=== PATIENT | male | born 1930 | race American Indian/Alaskan Native ===

== ENCOUNTER 2021-11-07 10:32 | Inpatient (IN) | payer OTHER ==
[~2021-11-07] VITALS: Ht 177.8 cm; Wt 93.5 kg
[2021-11-07 12:32] LABS: Hematocrit 41.1 % (41.0-53.0); Hemoglobin 13.7 g/dL (13.5-17.5); Mean Corpuscular Hemoglobin 30.1 pg (28.0-32.0); Mean Corpuscular Hgb Conc. 33.4 g/dL (32.0-36.0); Mean Corpuscular Volume 90.1 fL (80.0-100.0); Red Blood Cells 4.56 10^6/uL (4.5-5.90); Red Cell Distribution Width 14.3 % (11.8-14.3); White Blood Cell 23.6 10^3/uL (4.4-10.8)
[2021-11-07 12:38] LABS: Albumin 2.7 g/dL (3.4-5.0); Calcium 9.4 mg/dL (8.5-10.1); Potassium 4.4 mmol/L (3.5-5.1)
[2021-11-07 12:42] LABS: BUN/Creatinine Ratio 22.7; Basophils % (manual) 0 (0.0-2.0); Blast Cells 0; Eosinophils % (manual) 0 (0-7); Metamyelocytes % 0; Myelocytes % 0; Promyelocytes % 0; Reactive Lymphocytes 0; Total Protein 7.6 g/dL (6.4-8.2)
[2021-11-07 12:49] LABS: INR 1.1 (0.9-1.15); Partial Thromboplastin Time 28.8 sec (23.6-33.0)
[2021-11-07] MEDS ORDERED: HEPARIN DRIP/D5W 100UNITS/ML 250 ML IV SCH (13:15)
[2021-11-07 13:23] LABS: Band Neutrophils % (manual) 6; Lymphocytes % (manual) 5 (10.0-50.0); Monocytes % (manual) 7 (0-12)
[2021-11-07] MEDS ORDERED: ALTEPLASE IV ONE ×3 (13:30→14:00)
[2021-11-07] MEDS ORDERED: STERILE WATER IV ONE ×3 (13:30→14:00)
[2021-11-07 13:36] LABS: Urine Bacteria NONE SEEN /hpf (None Seen); Urine Blood Negative /uL (Negative); Urine WBC 2 /hpf (0 - 3)
[2021-11-07] MEDS ORDERED: HEPARIN SODIUM (PORCINE) 5000 UNITS/ML 1ML VIAL IV ONE (14:15)
[2021-11-07] MEDS ORDERED: NITROGLYCERIN 0.4 MG SL TAB SL PRN (15:00)
[2021-11-07] MEDS ORDERED: MORPHINE SULFATE INJECTION 2 MG/ML SYRG IV PRN (15:00)
[2021-11-07] MEDS: HEPARIN DRIP/D5W 100UNITS/ML 250 ML IV SCH (15:22)
[2021-11-07] MEDS: ALTEPLASE IV SCH (15:51)
[2021-11-07] MEDS: STERILE WATER IV SCH (15:51)
[2021-11-07] MEDS ORDERED: ONDANSETRON HCL 4 MG/2 ML VIAL IV PRN (16:45)
[2021-11-07] MEDS ORDERED: FAMOTIDINE (10MG/ML) 2ML VL IV ONE (16:45)
[2021-11-07] MEDS ORDERED: IPRATROPIUM BROM 0.5 MG/2.5ML INH SOL NEB ONE (16:45)
[2021-11-07] MEDS ORDERED: DOCUSATE SOD 100 MG CAP PO PRN (16:45)
[2021-11-07] MEDS ORDERED: DEXTROSE (50%) 50ML SYRG IV PRN (17:00)
[2021-11-07] MEDS ORDERED: cefTRIAXone 1GM/50ML D5W 50 ML IV ONE (17:00)
[2021-11-07] MEDS ORDERED: BENAZEPRIL HCL 10 MG TAB PO ONE (17:00)
[2021-11-07] MEDS ORDERED: BUDESONIDE (INHALATION) 0.5 MG/2 ML NEB NEB ONE (17:00)
[2021-11-07 17:57] LABS: INR 1.16 (0.9-1.15)
[2021-11-07] MEDS ORDERED: CLINDAMYCIN 600MG IV 50 ML IV ONE (18:00)
[2021-11-07] MEDS: ACCU-CHEK COMFORT CURVE STRIP VI SCH ×2 (18:15→22:08)
[2021-11-07] MEDS: InsuLIN REG 1unit/0.01ml Soln (100units/ml) SC SCH ×2 (18:59→22:13)
[2021-11-07] MEDS ORDERED: ATORVASTATIN 20 MG TAB PO SCH (22:00)
[2021-11-07] MEDS ORDERED: IPRATROPIUM BROM 0.5 MG/2.5ML INH SOL NEB SCH (22:00)
[2021-11-07 22:27] LABS: INR 1.09 (0.9-1.15); Partial Thromboplastin Time 30.9 sec (23.6-33.0)
[2021-11-08 02:32] LABS: INR 1.14 (0.9-1.15); Partial Thromboplastin Time 32.4 sec (23.6-33.0)
[2021-11-08] MEDS: HEPARIN DRIP/D5W 100UNITS/ML 250 ML IV SCH ×2 (04:30→19:59)
[2021-11-08] MEDS ORDERED: HEPARIN SODIUM (PORCINE) 5000 UNITS/ML 1ML VIAL IV ONE (05:00)
[2021-11-08] MEDS: CLINDAMYCIN 600MG IV 50 ML IV SCH ×3 (06:36→22:45)
[2021-11-08] MEDS: ALTEPLASE IV SCH (07:11)
[2021-11-08] MEDS: STERILE WATER IV SCH (07:11)
[2021-11-08] MEDS: BUDESONIDE (INHALATION) 0.5 MG/2 ML NEB NEB SCH ×2 (07:31→18:45)
[2021-11-08] MEDS: IPRATROPIUM BROM 0.5 MG/2.5ML INH SOL NEB PRN ×2 (07:32→18:45)
[2021-11-08] MEDS: ACCU-CHEK COMFORT CURVE STRIP VI SCH ×4 (07:54→23:35)
[2021-11-08] MEDS: InsuLIN REG 1unit/0.01ml Soln (100units/ml) SC SCH ×4 (07:54→23:35)
[2021-11-08 08:30] LABS: Basophils # (auto) 0 10 ^3/uL (0-0.2); Basophils % (auto) 0.2 % (0.0-2.0); Eosinophils # (auto) 0.2 10 ^3/uL (0-0.8); Hematocrit 39.2 % (41.0-53.0); Hemoglobin 12.8 g/dL (13.5-17.5); Lymphocytes # (auto) 0.8 10 ^3/uL (0.4-5.4); Lymphocytes % (auto) 4.1 % (10.0-50.0); Mean Corpuscular Hemoglobin 29.5 pg (28.0-32.0); Mean Corpuscular Hgb Conc. 32.7 g/dL (32.0-36.0); Mean Corpuscular Volume 90.3 fL (80.0-100.0); Monocytes % (auto) 9.8 % (0.0-12.0); Neutrophils # (auto) 17.1 10 ^3/uL (1.6-8.6); Neutrophils % (auto) 84.9 % (37.0-80.0); Nucleated Red Blood Cells % 0.1 %; Red Blood Cells 4.34 10^6/uL (4.5-5.90); Red Cell Distribution Width 14.5 % (11.8-14.3); White Blood Cell 20.2 10^3/uL (4.4-10.8)
[2021-11-08 08:51] LABS: INR 1.12 (0.9-1.15); Partial Thromboplastin Time 42.8 sec (23.6-33.0)
[2021-11-08 08:57] LABS: Potassium 3.8 mmol/L (3.5-5.1)
[2021-11-08 09:14] LABS: Albumin 2.4 g/dL (3.4-5.0); BUN/Creatinine Ratio 26.9; Bilirubin, Total 0.7 mg/dL (0.2-1.0); Calcium 8.7 mg/dL (8.5-10.1); Phosphorus 3.6 mg/dL (2.5-4.90); Total Protein 6.6 g/dL (6.4-8.2); Uric Acid 6.2 mg/dL (3.5-7.2)
[2021-11-08] MEDS ORDERED: FAMOTIDINE (10MG/ML) 2ML VL IV SCH (10:00)
[2021-11-08] MEDS: BENAZEPRIL HCL 10 MG TAB PO SCH (10:36)
[2021-11-08] MEDS: LORazepam 0.5 MG TAB PO PRN (10:36)
[2021-11-08] MEDS: hydrALAZINE HCL 20 MG/ML VL IV PRN (13:58)
[2021-11-08 14:06] LABS: Hepatitis C Antibody Negative (Negative)
[2021-11-08 18:36] LABS: INR 1.18 (0.9-1.15)
[2021-11-08] MEDS ORDERED: cefTRIAXone 1GM/50ML D5W 50 ML IV SCH (21:00)
[2021-11-09 02:49] LABS: INR 1.19 (0.9-1.15); Partial Thromboplastin Time 43.6 sec (23.6-33.0)
[2021-11-09] MEDS ORDERED: HALOPERIDOL LACTATE 5 MG/ML INJ VIAL IM ONE (05:30)
[2021-11-09] MEDS: CLINDAMYCIN 600MG IV 50 ML IV SCH (06:46)
[2021-11-09] MEDS: SODIUM CHLORIDE 0.9% 1,000 ML IV SCH ×2 (07:29→14:04)
[2021-11-09 08:05] LABS: Hematocrit 40.8 % (41.0-53.0); Hemoglobin 13.5 g/dL (13.5-17.5); Mean Corpuscular Hemoglobin 29.8 pg (28.0-32.0); Mean Corpuscular Hgb Conc. 33.2 g/dL (32.0-36.0); Mean Corpuscular Volume 89.8 fL (80.0-100.0); Red Blood Cells 4.54 10^6/uL (4.5-5.90); Red Cell Distribution Width 14.1 % (11.8-14.3)
[2021-11-09 08:08] LABS: White Blood Cell 33.1 10^3/uL (4.4-10.8)
[2021-11-09 08:14] LABS: Albumin 2.5 g/dL (3.4-5.0); Calcium 8.9 mg/dL (8.5-10.1); Potassium 3.8 mmol/L (3.5-5.1)
[2021-11-09] MEDS: ACCU-CHEK COMFORT CURVE STRIP VI SCH ×4 (08:16→23:00)
[2021-11-09 08:18] LABS: Total Protein 6.9 g/dL (6.4-8.2)
[2021-11-09] MEDS: InsuLIN REG 1unit/0.01ml Soln (100units/ml) SC SCH ×4 (08:20→23:20)
[2021-11-09 08:22] LABS: Basophils % (manual) 0 (0.0-2.0); Blast Cells 0; Eosinophils % (manual) 0 (0-7); Metamyelocytes % 0; Myelocytes % 0; Promyelocytes % 0; Reactive Lymphocytes 0
[2021-11-09 08:44] LABS: Band Neutrophils % (manual) 1; Lymphocytes % (manual) 3 (10.0-50.0); Monocytes % (manual) 9 (0-12)
[2021-11-09] MEDS ORDERED: ACETAMINOPHEN 650 mg PER 20.3 mL UD PO ONE (09:30)
[2021-11-09 09:35] LABS: INR 1.23 (0.9-1.15)
[2021-11-09] MEDS: HEPARIN DRIP/D5W 100UNITS/ML 250 ML IV SCH (10:03)
[2021-11-09] MEDS: BUDESONIDE (INHALATION) 0.5 MG/2 ML NEB NEB SCH ×2 (10:10→19:51)
[2021-11-09] MEDS: IPRATROPIUM BROM 0.5 MG/2.5ML INH SOL NEB PRN ×2 (10:11→19:51)
[2021-11-09] MEDS: BENAZEPRIL HCL 10 MG TAB PO SCH (10:14)
[2021-11-09] MEDS ORDERED: VANCOMYCIN PER PHARMACY 0 MG IV SCH (13:45)
[2021-11-09] MEDS ORDERED: PIPERACILLIN-TAZOB 3.375GM 100 ML IV ONE (13:45)
[2021-11-09] MEDS ORDERED: PANTOPRAZOLE 40 MG/10 ML VIAL INJ IV ONE (14:00)
[2021-11-09] MEDS: PIPERACILLIN-TAZOB 3.375GM 100 ML IV SCH ×2 (14:05→20:00)
[2021-11-09] MEDS ORDERED: IOHEXOL 300 MG/ML 100ML BOTTLE IJ ONE (15:50)
[2021-11-09] MEDS ORDERED: VANCOMYCIN 1GM/250ML 250 ML IV SCH (16:00)
[2021-11-09 16:19] LABS: INR 1.28 (0.9-1.15); Partial Thromboplastin Time 62.2 sec (23.6-33.0)
[2021-11-09] MEDS ORDERED: InsuLIN REG 1unit/0.01ml Soln (100units/ml) IV ONE (19:00)
[2021-11-09] MEDS ORDERED: CALCIUM GLUC 1,000mg/50ml-NS 50 ML IV ONE (19:00)
[2021-11-09] MEDS ORDERED: SODIUM BICARBONATE 8.4% INJ 50ML SYRINGE IV ONE (19:00)
[2021-11-09] MEDS ORDERED: DEXTROSE (50%) 50ML SYRG IV ONE (19:00)
[2021-11-09] MEDS ORDERED: SODIUM ZIRCONIUM CYCL 10 GM PAK PO ONE (19:00)
[2021-11-09] MEDS ORDERED: ALBUTEROL SULF 2.5 MG/0.5ML(0.5%) NEB SOLN NEB ONE (19:00)
[2021-11-09] MEDS ORDERED: ALBUTEROL SULF 2.5 MG/0.5ML(0.5%) NEB SOLN ONE (19:41)
[2021-11-09 21:45] LABS: INR 1.29 (0.9-1.15)
[2021-11-09 21:53] LABS: Partial Thromboplastin Time 85.9 sec (23.6-33.0)
[2021-11-09 22:28] LABS: Alcohol, Urine < 3.0 mg/dL (0-10); Amphetamine Screen, Urine NEGATIVE (NEGATIVE); Barbiturate Scree,Urine NEGATIVE (NEGATIVE); Benzodiazephine Screen, Urine NEGATIVE (NEGATIVE); Cannabinoid Screen, Urine NEGATIVE (NEGATIVE); Cocaine Screen, Urine NEGATIVE (NEGATIVE); Opiate Scree,Urine NEGATIVE (NEGATIVE); Phencyclidine Screen, Urine NEGATIVE (NEGATIVE)
[2021-11-09 22:49] LABS: Urine Amorphous Crystal FEW /hpf (None Seen); Urine Bacteria NONE SEEN /hpf (None Seen); Urine Blood 3+ /uL (Negative); Urine Specific Gravity 1.024 (1.001-1.035); Urine WBC 4 /hpf (0 - 3)
[2021-11-10 03:30] LABS: INR 1.32 (0.9-1.15)
[2021-11-10 03:38] LABS: Partial Thromboplastin Time 78.6 sec (23.6-33.0)
[2021-11-10] MEDS: VANCOMYCIN 1GM/250ML 250 ML IV SCH ×2 (04:00→16:35)
[2021-11-10] MEDS: IPRATROPIUM BROM 0.5 MG/2.5ML INH SOL NEB PRN ×2 (05:36→18:13)
[2021-11-10] MEDS: BUDESONIDE (INHALATION) 0.5 MG/2 ML NEB NEB SCH ×2 (05:37→18:13)
[2021-11-10] MEDS: PIPERACILLIN-TAZOB 3.375GM 100 ML IV SCH ×4 (05:54→20:14)
[2021-11-10] MEDS: ACCU-CHEK COMFORT CURVE STRIP VI SCH ×4 (07:00→22:29)
[2021-11-10] MEDS: InsuLIN REG 1unit/0.01ml Soln (100units/ml) SC SCH ×4 (07:27→22:33)
[2021-11-10] MEDS: HEPARIN DRIP/D5W 100UNITS/ML 250 ML IV SCH ×2 (07:29→20:57)
[2021-11-10 08:03] LABS: Hematocrit 33.9 % (41.0-53.0); Hemoglobin 11.6 g/dL (13.5-17.5); Mean Corpuscular Hemoglobin 30.4 pg (28.0-32.0); Mean Corpuscular Hgb Conc. 34.2 g/dL (32.0-36.0); Mean Corpuscular Volume 88.8 fL (80.0-100.0); Red Blood Cells 3.82 10^6/uL (4.5-5.90); Red Cell Distribution Width 14.6 % (11.8-14.3); White Blood Cell 26.7 10^3/uL (4.4-10.8)
[2021-11-10 08:04] LABS: Basophils % (manual) 0 (0.0-2.0); Blast Cells 0; Eosinophils % (manual) 0 (0-7); Metamyelocytes % 0; Myelocytes % 0; Promyelocytes % 0; Reactive Lymphocytes 0
[2021-11-10 08:27] LABS: Albumin 1.9 g/dL (3.4-5.0); Calcium 7.9 mg/dL (8.5-10.1); Potassium 3.6 mmol/L (3.5-5.1)
[2021-11-10 08:33] LABS: BUN/Creatinine Ratio 18.3; Bilirubin, Total 0.9 mg/dL (0.2-1.0); Total Protein 5.8 g/dL (6.4-8.2)
[2021-11-10] MEDS: SODIUM CHLORIDE 0.9% 1,000 ML IV SCH ×2 (09:56→20:04)
[2021-11-10] MEDS: PANTOPRAZOLE 40 MG/10 ML VIAL INJ IV SCH (10:08)
[2021-11-10 10:37] LABS: Band Neutrophils % (manual) 8; Lymphocytes % (manual) 5 (10.0-50.0); Monocytes % (manual) 8 (0-12)
[2021-11-10 10:45] LABS: INR 1.29 (0.9-1.15); Partial Thromboplastin Time 45.5 sec (23.6-33.0)
[2021-11-10 18:48] LABS: INR 1.21 (0.9-1.15); Partial Thromboplastin Time 65.3 sec (23.6-33.0)
[2021-11-11 00:48] LABS: INR 1.21 (0.9-1.15)
[2021-11-11 00:51] LABS: Partial Thromboplastin Time 75.4 sec (23.6-33.0)
[2021-11-11] MEDS: PIPERACILLIN-TAZOB 3.375GM 100 ML IV SCH ×4 (02:25→22:41)
[2021-11-11 03:55] LABS: Hematocrit 34.3 % (41.0-53.0); Hemoglobin 11.5 g/dL (13.5-17.5); Mean Corpuscular Hemoglobin 29.8 pg (28.0-32.0); Mean Corpuscular Hgb Conc. 33.5 g/dL (32.0-36.0); Mean Corpuscular Volume 89.2 fL (80.0-100.0); Red Blood Cells 3.84 10^6/uL (4.5-5.90); Red Cell Distribution Width 14.2 % (11.8-14.3); White Blood Cell 29.3 10^3/uL (4.4-10.8)
[2021-11-11 04:16] LABS: BUN/Creatinine Ratio 19.3; Calcium 7.8 mg/dL (8.5-10.1); Potassium 3.7 mmol/L (3.5-5.1)
[2021-11-11 04:28] LABS: Basophils % (manual) 0 (0.0-2.0); Blast Cells 0; Metamyelocytes % 0; Myelocytes % 0; Promyelocytes % 0; Reactive Lymphocytes 0
[2021-11-11] MEDS: VANCOMYCIN 1GM/250ML 250 ML IV SCH ×2 (05:01→16:05)
[2021-11-11] MEDS: SODIUM CHLORIDE 0.9% 1,000 ML IV SCH ×3 (05:45→16:50)
[2021-11-11] MEDS: BUDESONIDE (INHALATION) 0.5 MG/2 ML NEB NEB SCH ×2 (05:46→22:30)
[2021-11-11] MEDS: IPRATROPIUM BROM 0.5 MG/2.5ML INH SOL NEB PRN ×2 (05:46→22:31)
[2021-11-11 06:45] LABS: INR 1.24 (0.9-1.15); Partial Thromboplastin Time 57.5 sec (23.6-33.0)
[2021-11-11 06:47] LABS: Band Neutrophils % (manual) 5; Eosinophils % (manual) 2 (0-7); Lymphocytes % (manual) 4 (10.0-50.0); Monocytes % (manual) 8 (0-12)
[2021-11-11] MEDS: InsuLIN REG 1unit/0.01ml Soln (100units/ml) SC SCH ×4 (07:00→23:19)
[2021-11-11] MEDS: ACCU-CHEK COMFORT CURVE STRIP VI SCH ×4 (07:02→23:21)
[2021-11-11] MEDS ORDERED: ANGIOMAX 250 MG VIAL IV ONE (09:35)
[2021-11-11] MEDS ORDERED: SODIUM CHL 0.9% 50 ML ONE (09:36)
[2021-11-11] MEDS ORDERED: MIDAZOLAM HCL 2MG/2ML 2ml VIAL (1mg/ml) ONE (09:36)
[2021-11-11] MEDS ORDERED: fentaNYL CITRATE 100 MCG/2 ML VL ONE (09:36)
[2021-11-11] MEDS ORDERED: LIDOCAINE 2%HCL (LOCAL ANESTH.) INJ 20ML MDV ONE (09:52)
[2021-11-11] MEDS ORDERED: IOHEXOL 350 MG/ML 100ML IJ ONE ×2 (09:52→10:54)
[2021-11-11] MEDS ORDERED: diphenhdrAMINE HCL 50 MG/1 ML VL ONE (10:18)
[2021-11-11] MEDS ORDERED: FUROSEMIDE 20 MG/2 ML VIAL ONE (10:41)
[2021-11-11 13:00] VITALS: BP 142/71
[2021-11-11] MEDS: PANTOPRAZOLE 40 MG/10 ML VIAL INJ IV SCH (13:05)
[2021-11-11 14:30] VITALS: BP 128/65
[2021-11-11 14:47] VITALS: BP 142/71
[2021-11-11] MEDS ORDERED: SIMV-13 PO (15:21)
[2021-11-11] MEDS ORDERED: KAY60LQ PO (15:21)
[2021-11-11] MEDS ORDERED: FLUT50SP NAS (15:21)
[2021-11-11] MEDS ORDERED: BENA20TA14 PO (15:21)
[2021-11-11] MEDS ORDERED: ALLO300T2 PO (15:21)
[2021-11-11] MEDS ORDERED: DULA3INJ SC (15:21)
[2021-11-11] MEDS ORDERED: CLOP75TA70 PO (15:21)
[2021-11-11 15:30] VITALS: BP 135/74
[2021-11-11 17:00] VITALS: BP 137/70
[2021-11-11] MEDS ORDERED: FURO1TAB33 PO (17:49)
[2021-11-11] MEDS ORDERED: METF-371 PO (17:49)
[2021-11-11] MEDS ORDERED: AMLO-489 PO (17:49)
[2021-11-11] MEDS: ALBUTEROL SULF 2.5 MG/0.5ML(0.5%) NEB SOLN NEB PRN (22:31)
[2021-11-11] MEDS: INSULIN LANTUS (GLARGINE) 1 /0.01ml (100units/ml) SC SCH (23:20)
[2021-11-12 00:04] VITALS: BP 111/66
[2021-11-12] MEDS: PIPERACILLIN-TAZOB 3.375GM 100 ML IV SCH ×4 (04:00→22:20)
[2021-11-12 05:31] LABS: Albumin 1.6 g/dL (3.4-5.0); BUN/Creatinine Ratio 18.4; Potassium 3.5 mmol/L (3.5-5.1)
[2021-11-12 05:33] LABS: Bilirubin, Total 1.9 mg/dL (0.2-1.0); Total Protein 5.5 g/dL (6.4-8.2)
[2021-11-12 05:39] VITALS: BP 127/66
[2021-11-12 05:40] LABS: Hemoglobin 11.5 g/dL (13.5-17.5); Mean Corpuscular Hemoglobin 29.3 pg (28.0-32.0); Mean Corpuscular Hgb Conc. 32.8 g/dL (32.0-36.0); Mean Corpuscular Volume 89.3 fL (80.0-100.0); Red Blood Cells 3.92 10^6/uL (4.5-5.90); Red Cell Distribution Width 14.8 % (11.8-14.3); White Blood Cell 28.3 10^3/uL (4.4-10.8)
[2021-11-12] MEDS: VANCOMYCIN 1GM/250ML 250 ML IV SCH (06:01)
[2021-11-12] MEDS: ACCU-CHEK COMFORT CURVE STRIP VI SCH ×4 (06:01→23:53)
[2021-11-12] MEDS: SODIUM CHLORIDE 0.9% 1,000 ML IV SCH ×2 (06:01→23:24)
[2021-11-12] MEDS: InsuLIN REG 1unit/0.01ml Soln (100units/ml) SC SCH ×4 (06:02→23:55)
[2021-11-12 06:07] LABS: INR 1.24 (0.9-1.15)
[2021-11-12 06:13] LABS: Basophils % (manual) 0 (0.0-2.0); Blast Cells 0; Eosinophils % (manual) 0 (0-7); Metamyelocytes % 0; Myelocytes % 0; Promyelocytes % 0; Reactive Lymphocytes 0
[2021-11-12 09:00] VITALS: BP 154/108
[2021-11-12] MEDS: CHOLECALCIFEROL (VITD3) 2,000 UNIT CAP/TAB PO SCH (09:04)
[2021-11-12] MEDS: PANTOPRAZOLE 40 MG/10 ML VIAL INJ IV SCH (09:04)
[2021-11-12] MEDS: ENOXAPARIN SOD 40 MG/0.4 ML SYRINGE SC SCH (09:04)
[2021-11-12] MEDS: BUDESONIDE (INHALATION) 0.5 MG/2 ML NEB NEB SCH ×2 (10:00→22:53)
[2021-11-12] MEDS: MORPHINE SULFATE INJECTION 2 MG/ML SYRG IV PRN (11:27)
[2021-11-12 13:00] VITALS: BP 131/67
[2021-11-12 14:21] LABS: Band Neutrophils % (manual) 4; Lymphocytes % (manual) 7 (10.0-50.0); Monocytes % (manual) 9 (0-12)
[2021-11-12 17:25] VITALS: BP 126/65
[2021-11-12 22:00] VITALS: BP 137/71
[2021-11-12] MEDS: ALBUTEROL SULF 2.5 MG/0.5ML(0.5%) NEB SOLN NEB PRN (22:53)
[2021-11-12] MEDS: IPRATROPIUM BROM 0.5 MG/2.5ML INH SOL NEB PRN (22:53)
[2021-11-12] MEDS: LINEZOLID 600MG/300ML 300 ML IV SCH (23:51)
[2021-11-12] MEDS: INSULIN LANTUS (GLARGINE) 1 /0.01ml (100units/ml) SC SCH (23:56)
[2021-11-13] MEDS: MORPHINE SULFATE INJECTION 2 MG/ML SYRG IV PRN ×2 (02:52→20:46)
[2021-11-13] MEDS: PIPERACILLIN-TAZOB 3.375GM 100 ML IV SCH ×4 (02:57→19:37)
[2021-11-13 05:00] VITALS: BP 121/70
[2021-11-13 05:42] LABS: Basophils # (auto) 0.1 10 ^3/uL (0-0.2); Basophils % (auto) 0.3 % (0.0-2.0); Eosinophils # (auto) 0.6 10 ^3/uL (0-0.8); Eosinophils % (auto) 2.3 % (0.0-7.0); Hemoglobin 11.8 g/dL (13.5-17.5); Lymphocytes # (auto) 1.1 10 ^3/uL (0.4-5.4); Lymphocytes % (auto) 4.2 % (10.0-50.0); Mean Corpuscular Hemoglobin 29.5 pg (28.0-32.0); Mean Corpuscular Hgb Conc. 32.7 g/dL (32.0-36.0); Mean Corpuscular Volume 90.1 fL (80.0-100.0); Monocytes # (auto) 2.5 10 ^3/uL (0-1.3); Monocytes % (auto) 9.8 % (0.0-12.0); Neutrophils # (auto) 21.2 10 ^3/uL (1.6-8.6); Neutrophils % (auto) 83.4 % (37.0-80.0); Red Blood Cells 3.99 10^6/uL (4.5-5.90); Red Cell Distribution Width 14.4 % (11.8-14.3); White Blood Cell 25.4 10^3/uL (4.4-10.8)
[2021-11-13 05:55] LABS: INR 1.23 (0.9-1.15)
[2021-11-13 05:59] LABS: Potassium 3.6 mmol/L (3.5-5.1)
[2021-11-13 06:18] LABS: Albumin 1.5 g/dL (3.4-5.0); BUN/Creatinine Ratio 19.9; Calcium 8.1 mg/dL (8.5-10.1); Total Protein 5.3 g/dL (6.4-8.2)
[2021-11-13 06:19] LABS: Bilirubin, Total 1.4 mg/dL (0.2-1.0)
[2021-11-13] MEDS: ACCU-CHEK COMFORT CURVE STRIP VI SCH ×4 (06:21→21:33)
[2021-11-13] MEDS: InsuLIN REG 1unit/0.01ml Soln (100units/ml) SC SCH ×4 (06:22→21:43)
[2021-11-13] MEDS: BUDESONIDE (INHALATION) 0.5 MG/2 ML NEB NEB SCH ×2 (07:02→22:00)
[2021-11-13] MEDS: IPRATROPIUM BROM 0.5 MG/2.5ML INH SOL NEB PRN (07:02)
[2021-11-13] MEDS: ALBUTEROL SULF 2.5 MG/0.5ML(0.5%) NEB SOLN NEB PRN (07:02)
[2021-11-13] MEDS: LINEZOLID 600MG/300ML 300 ML IV SCH ×2 (08:53→22:55)
[2021-11-13] MEDS: CHOLECALCIFEROL (VITD3) 2,000 UNIT CAP/TAB PO SCH (08:53)
[2021-11-13] MEDS: PANTOPRAZOLE 40 MG/10 ML VIAL INJ IV SCH (08:53)
[2021-11-13] MEDS: ENOXAPARIN SOD 40 MG/0.4 ML SYRINGE SC SCH (08:53)
[2021-11-13] MEDS: HYDROcodone-ACET 5/325MG TAB PO PRN (10:26)
[2021-11-13] MEDS: SODIUM CHLORIDE 0.9% 1,000 ML IV SCH (11:29)
[2021-11-13 13:00] VITALS: BP 140/70
[2021-11-13 15:40] LABS: BUN/Creatinine Ratio 19.5; Calcium 7.8 mg/dL (8.5-10.1); Potassium 3.5 mmol/L (3.5-5.1)
[2021-11-13 17:00] VITALS: BP 135/75
[2021-11-13] MEDS: INSULIN LANTUS (GLARGINE) 1 /0.01ml (100units/ml) SC SCH (21:43)
[2021-11-13 22:00] VITALS: BP 134/67
[2021-11-14] MEDS: LINEZOLID 600MG/300ML 300 ML IV SCH ×3 (01:46→23:17)
[2021-11-14] MEDS: PIPERACILLIN-TAZOB 3.375GM 100 ML IV SCH ×4 (01:47→20:13)
[2021-11-14] MEDS: SODIUM CHLORIDE 0.9% 1,000 ML IV SCH ×2 (01:57→16:02)
[2021-11-14 05:29] VITALS: BP 130/63
[2021-11-14] MEDS: MORPHINE SULFATE INJECTION 2 MG/ML SYRG IV PRN ×3 (05:42→21:26)
[2021-11-14] MEDS: ALBUTEROL SULF 2.5 MG/0.5ML(0.5%) NEB SOLN NEB PRN (06:07)
[2021-11-14] MEDS: IPRATROPIUM BROM 0.5 MG/2.5ML INH SOL NEB PRN (06:07)
[2021-11-14] MEDS: BUDESONIDE (INHALATION) 0.5 MG/2 ML NEB NEB SCH ×2 (06:07→17:30)
[2021-11-14] MEDS: ACCU-CHEK COMFORT CURVE STRIP VI SCH ×4 (06:22→21:08)
[2021-11-14] MEDS: InsuLIN REG 1unit/0.01ml Soln (100units/ml) SC SCH ×4 (06:22→21:18)
[2021-11-14 08:11] VITALS: BP 122/78
[2021-11-14 08:45] VITALS: BP 140/77
[2021-11-14] MEDS: PANTOPRAZOLE 40 MG/10 ML VIAL INJ IV SCH (10:27)
[2021-11-14] MEDS: CHOLECALCIFEROL (VITD3) 2,000 UNIT CAP/TAB PO SCH (10:27)
[2021-11-14] MEDS: ENOXAPARIN SOD 40 MG/0.4 ML SYRINGE SC SCH (10:28)
[2021-11-14] MEDS: INSULIN LANTUS (GLARGINE) 1 /0.01ml (100units/ml) SC SCH (21:19)
[2021-11-14 22:00] VITALS: BP 141/69
[2021-11-15] VITALS (7 sets, daily range): BP systolic 103–150; BP diastolic 59–88
[2021-11-15] MEDS: PIPERACILLIN-TAZOB 3.375GM 100 ML IV SCH ×4 (02:36→19:55)
[2021-11-15] MEDS: InsuLIN REG 1unit/0.01ml Soln (100units/ml) SC SCH ×4 (06:04→22:49)
[2021-11-15] MEDS: ACCU-CHEK COMFORT CURVE STRIP VI SCH ×4 (06:04→22:40)
[2021-11-15] MEDS: SODIUM CHLORIDE 0.9% 1,000 ML IV SCH (06:05)
[2021-11-15] MEDS: BUDESONIDE (INHALATION) 0.5 MG/2 ML NEB NEB SCH ×2 (06:08→22:42)
[2021-11-15] MEDS: ALBUTEROL SULF 2.5 MG/0.5ML(0.5%) NEB SOLN NEB PRN ×2 (06:08→22:40)
[2021-11-15] MEDS: IPRATROPIUM BROM 0.5 MG/2.5ML INH SOL NEB PRN ×2 (06:08→22:40)
[2021-11-15] MEDS: MORPHINE SULFATE INJECTION 2 MG/ML SYRG IV PRN ×3 (06:18→20:30)
[2021-11-15] MEDS: PANTOPRAZOLE 40 MG/10 ML VIAL INJ IV SCH (08:15)
[2021-11-15] MEDS: CHOLECALCIFEROL (VITD3) 2,000 UNIT CAP/TAB PO SCH (08:15)
[2021-11-15] MEDS: ENOXAPARIN SOD 40 MG/0.4 ML SYRINGE SC SCH (08:16)
[2021-11-15 11:28] LABS: Basophils # (auto) 0.1 10 ^3/uL (0-0.2); Basophils % (auto) 0.5 % (0.0-2.0); Eosinophils # (auto) 0.6 10 ^3/uL (0-0.8); Hematocrit 35.2 % (41.0-53.0); Hemoglobin 11.9 g/dL (13.5-17.5); Lymphocytes # (auto) 0.9 10 ^3/uL (0.4-5.4); Lymphocytes % (auto) 4.1 % (10.0-50.0); Mean Corpuscular Hemoglobin 29.8 pg (28.0-32.0); Mean Corpuscular Hgb Conc. 33.7 g/dL (32.0-36.0); Mean Corpuscular Volume 88.4 fL (80.0-100.0); Monocytes % (auto) 9.2 % (0.0-12.0); Neutrophils # (auto) 17.9 10 ^3/uL (1.6-8.6); Neutrophils % (auto) 83.2 % (37.0-80.0); Red Blood Cells 3.98 10^6/uL (4.5-5.90); Red Cell Distribution Width 14.7 % (11.8-14.3); White Blood Cell 21.5 10^3/uL (4.4-10.8)
[2021-11-15 11:45] LABS: Potassium 3.7 mmol/L (3.5-5.1)
[2021-11-15] MEDS: LINEZOLID 600MG/300ML 300 ML IV SCH ×2 (11:54→22:39)
[2021-11-15] MEDS: INSULIN LANTUS (GLARGINE) 1 /0.01ml (100units/ml) SC SCH (22:50)
[2021-11-16] MEDS: PIPERACILLIN-TAZOB 3.375GM 100 ML IV SCH ×4 (03:06→20:02)
[2021-11-16] MEDS: SODIUM CHLORIDE 0.9% 1,000 ML IV SCH ×2 (03:06→09:32)
[2021-11-16] MEDS: MORPHINE SULFATE INJECTION 2 MG/ML SYRG IV PRN ×3 (03:35→20:21)
[2021-11-16 05:00] VITALS: BP 140/77
[2021-11-16] MEDS: ACCU-CHEK COMFORT CURVE STRIP VI SCH ×4 (05:58→21:11)
[2021-11-16] MEDS: InsuLIN REG 1unit/0.01ml Soln (100units/ml) SC SCH ×4 (06:07→21:20)
[2021-11-16] MEDS: BUDESONIDE (INHALATION) 0.5 MG/2 ML NEB NEB SCH ×2 (06:48→19:26)
[2021-11-16] MEDS: ALBUTEROL SULF 2.5 MG/0.5ML(0.5%) NEB SOLN NEB PRN ×2 (06:48→19:26)
[2021-11-16] MEDS: IPRATROPIUM BROM 0.5 MG/2.5ML INH SOL NEB PRN ×2 (06:48→19:26)
[2021-11-16 09:00] VITALS: BP 134/68
[2021-11-16] MEDS: CHOLECALCIFEROL (VITD3) 2,000 UNIT CAP/TAB PO SCH (09:32)
[2021-11-16] MEDS: PANTOPRAZOLE 40 MG/10 ML VIAL INJ IV SCH (09:33)
[2021-11-16] MEDS: ENOXAPARIN SOD 40 MG/0.4 ML SYRINGE SC SCH (09:33)
[2021-11-16 13:00] VITALS: BP 139/66
[2021-11-16] MEDS: LINEZOLID 600MG/300ML 300 ML IV SCH ×2 (13:01→21:11)
[2021-11-16 17:00] VITALS: BP 147/55
[2021-11-16] MEDS: INSULIN LANTUS (GLARGINE) 1 /0.01ml (100units/ml) SC SCH (21:23)
[2021-11-16 22:00] VITALS: BP 140/69
[2021-11-17] MEDS: PIPERACILLIN-TAZOB 3.375GM 100 ML IV SCH ×2 (02:06→08:00)
[2021-11-17] MEDS: SODIUM CHLORIDE 0.9% 1,000 ML IV SCH ×2 (02:11→17:10)
[2021-11-17 05:00] VITALS: BP 150/69
[2021-11-17] MEDS: BUDESONIDE (INHALATION) 0.5 MG/2 ML NEB NEB SCH ×2 (05:42→18:22)
[2021-11-17] MEDS: ALBUTEROL SULF 2.5 MG/0.5ML(0.5%) NEB SOLN NEB PRN ×2 (05:42→18:21)
[2021-11-17] MEDS: IPRATROPIUM BROM 0.5 MG/2.5ML INH SOL NEB PRN ×2 (05:42→18:22)
[2021-11-17] MEDS: MORPHINE SULFATE INJECTION 2 MG/ML SYRG IV PRN ×3 (05:58→21:15)
[2021-11-17] MEDS: hydrALAZINE HCL 20 MG/ML VL IV PRN (05:58)
[2021-11-17] MEDS: ACCU-CHEK COMFORT CURVE STRIP VI SCH ×4 (06:03→21:20)
[2021-11-17] MEDS: InsuLIN REG 1unit/0.01ml Soln (100units/ml) SC SCH ×4 (06:04→21:21)
[2021-11-17 07:05] LABS: Basophils # (auto) 0.1 10 ^3/uL (0-0.2); Basophils % (auto) 0.6 % (0.0-2.0); Eosinophils # (auto) 0.6 10 ^3/uL (0-0.8); Eosinophils % (auto) 3.2 % (0.0-7.0); Hematocrit 36.5 % (41.0-53.0); Lymphocytes # (auto) 1.2 10 ^3/uL (0.4-5.4); Lymphocytes % (auto) 6.9 % (10.0-50.0); Mean Corpuscular Hgb Conc. 32.8 g/dL (32.0-36.0); Mean Corpuscular Volume 88.2 fL (80.0-100.0); Monocytes # (auto) 1.5 10 ^3/uL (0-1.3); Monocytes % (auto) 8.4 % (0.0-12.0); Neutrophils # (auto) 14.1 10 ^3/uL (1.6-8.6); Neutrophils % (auto) 80.9 % (37.0-80.0); Red Blood Cells 4.13 10^6/uL (4.5-5.90); Red Cell Distribution Width 14.7 % (11.8-14.3); White Blood Cell 17.4 10^3/uL (4.4-10.8)
[2021-11-17 07:20] LABS: Potassium 3.5 mmol/L (3.5-5.1)
[2021-11-17 07:27] LABS: BUN/Creatinine Ratio 14.8; Calcium 7.5 mg/dL (8.5-10.1)
[2021-11-17 09:00] VITALS: BP 138/57
[2021-11-17] MEDS: CHOLECALCIFEROL (VITD3) 2,000 UNIT CAP/TAB PO SCH (09:51)
[2021-11-17] MEDS: LINEZOLID 600MG/300ML 300 ML IV SCH (09:51)
[2021-11-17] MEDS: PANTOPRAZOLE 40 MG/10 ML VIAL INJ IV SCH (09:51)
[2021-11-17] MEDS: ENOXAPARIN SOD 40 MG/0.4 ML SYRINGE SC SCH (09:52)
[2021-11-17 13:00] VITALS: BP 142/55
[2021-11-17] MEDS ORDERED: CILOSTAZOL 100 MG TAB PO ONE (16:00)
[2021-11-17] MEDS ORDERED: CLOPIDOGREL BISULFATE 75 MG TAB PO ONE (16:00)
[2021-11-17 17:00] VITALS: BP 154/63
[2021-11-17] MEDS: CILOSTAZOL 100 MG TAB PO SCH (21:15)
[2021-11-17] MEDS: INSULIN LANTUS (GLARGINE) 1 /0.01ml (100units/ml) SC SCH (21:24)
[2021-11-17 22:00] VITALS: BP 127/61
[2021-11-18] MEDS: MORPHINE SULFATE INJECTION 2 MG/ML SYRG IV PRN (03:30)
[2021-11-18 05:00] VITALS: BP 135/69
[2021-11-18] MEDS: ACCU-CHEK COMFORT CURVE STRIP VI SCH ×4 (06:11→23:12)
[2021-11-18] MEDS: InsuLIN REG 1unit/0.01ml Soln (100units/ml) SC SCH ×4 (06:11→23:18)
[2021-11-18 06:59] LABS: INR 1.09 (0.9-1.15)
[2021-11-18 07:06] LABS: Albumin 1.6 g/dL (3.4-5.0); Basophils # (auto) 0.1 10 ^3/uL (0-0.2); Basophils % (auto) 0.4 % (0.0-2.0); Calcium 7.7 mg/dL (8.5-10.1); Eosinophils # (auto) 0.5 10 ^3/uL (0-0.8); Hematocrit 32.6 % (41.0-53.0); Hemoglobin 11.1 g/dL (13.5-17.5); Lymphocytes # (auto) 1.2 10 ^3/uL (0.4-5.4); Lymphocytes % (auto) 7.4 % (10.0-50.0); Mean Corpuscular Hgb Conc. 34.1 g/dL (32.0-36.0); Mean Corpuscular Volume 87.9 fL (80.0-100.0); Monocytes # (auto) 1.2 10 ^3/uL (0-1.3); Monocytes % (auto) 7.4 % (0.0-12.0); Neutrophils # (auto) 13.2 10 ^3/uL (1.6-8.6); Neutrophils % (auto) 81.8 % (37.0-80.0); Potassium 3.7 mmol/L (3.5-5.1); Red Blood Cells 3.71 10^6/uL (4.5-5.90); Red Cell Distribution Width 14.6 % (11.8-14.3); White Blood Cell 16.1 10^3/uL (4.4-10.8)
[2021-11-18 07:09] LABS: BUN/Creatinine Ratio 20.2; Bilirubin, Total 0.7 mg/dL (0.2-1.0)
[2021-11-18 07:19] LABS: Total Protein 5.5 g/dL (6.4-8.2)
[2021-11-18 08:33] VITALS: BP 141/73
[2021-11-18] MEDS: SODIUM CHLORIDE 0.9% 1,000 ML IV SCH ×2 (09:50→13:00)
[2021-11-18] MEDS: CHOLECALCIFEROL (VITD3) 2,000 UNIT CAP/TAB PO SCH (10:00)
[2021-11-18] MEDS: CLOPIDOGREL BISULFATE 75 MG TAB PO SCH (10:00)
[2021-11-18] MEDS: ENOXAPARIN SOD 40 MG/0.4 ML SYRINGE SC SCH (10:00)
[2021-11-18] MEDS: CILOSTAZOL 100 MG TAB PO SCH ×2 (10:00→21:34)
[2021-11-18] MEDS: PANTOPRAZOLE 40 MG/10 ML VIAL INJ IV SCH (10:00)
[2021-11-18] MEDS: HYDROcodone-ACET 5/325MG TAB PO PRN ×2 (10:58→19:45)
[2021-11-18] MEDS: BUDESONIDE (INHALATION) 0.5 MG/2 ML NEB NEB SCH ×2 (11:04→18:12)
[2021-11-18 13:00] VITALS: BP 117/57
[2021-11-18] MEDS ORDERED: DEXTROSE (50%) 50ML SYRG IV PRN (13:00)
[2021-11-18 17:00] VITALS: BP 139/63
[2021-11-18] MEDS: ALBUTEROL SULF 2.5 MG/0.5ML(0.5%) NEB SOLN NEB PRN (18:11)
[2021-11-18] MEDS: IPRATROPIUM BROM 0.5 MG/2.5ML INH SOL NEB PRN (18:11)
[2021-11-18 22:00] VITALS: BP 130/65
[2021-11-18] MEDS: INSULIN LANTUS (GLARGINE) 1 /0.01ml (100units/ml) SC SCH (23:15)
[2021-11-19] MEDS: SODIUM CHLORIDE 0.9% 1,000 ML IV SCH ×2 (03:24→22:30)
[2021-11-19 05:00] VITALS: BP 148/76
[2021-11-19] MEDS: ACCU-CHEK COMFORT CURVE STRIP VI SCH ×4 (05:34→23:11)
[2021-11-19] MEDS: InsuLIN REG 1unit/0.01ml Soln (100units/ml) SC SCH ×4 (05:34→23:15)
[2021-11-19 05:39] LABS: Basophils # (auto) 0.1 10 ^3/uL (0-0.2); Basophils % (auto) 0.5 % (0.0-2.0); Eosinophils # (auto) 0.4 10 ^3/uL (0-0.8); Eosinophils % (auto) 2.7 % (0.0-7.0); Hematocrit 33.9 % (41.0-53.0); Lymphocytes # (auto) 1.2 10 ^3/uL (0.4-5.4); Lymphocytes % (auto) 7.2 % (10.0-50.0); Mean Corpuscular Hemoglobin 29.1 pg (28.0-32.0); Mean Corpuscular Hgb Conc. 32.5 g/dL (32.0-36.0); Mean Corpuscular Volume 89.4 fL (80.0-100.0); Monocytes # (auto) 1.4 10 ^3/uL (0-1.3); Monocytes % (auto) 8.8 % (0.0-12.0); Neutrophils # (auto) 13.2 10 ^3/uL (1.6-8.6); Neutrophils % (auto) 80.8 % (37.0-80.0); Red Blood Cells 3.79 10^6/uL (4.5-5.90); Red Cell Distribution Width 14.8 % (11.8-14.3); White Blood Cell 16.3 10^3/uL (4.4-10.8)
[2021-11-19] MEDS: BUDESONIDE (INHALATION) 0.5 MG/2 ML NEB NEB SCH ×2 (06:13→22:19)
[2021-11-19] MEDS: IPRATROPIUM BROM 0.5 MG/2.5ML INH SOL NEB PRN (06:13)
[2021-11-19] MEDS: ALBUTEROL SULF 2.5 MG/0.5ML(0.5%) NEB SOLN NEB PRN (06:13)
[2021-11-19] MEDS: HYDROcodone-ACET 5/325MG TAB PO PRN ×3 (06:37→18:30)
[2021-11-19] MEDS: hydrALAZINE HCL 20 MG/ML VL IV PRN (07:47)
[2021-11-19 08:20] VITALS: BP 106/43
[2021-11-19 09:00] VITALS: BP 164/69
[2021-11-19] MEDS: CLOPIDOGREL BISULFATE 75 MG TAB PO SCH (09:50)
[2021-11-19] MEDS: CILOSTAZOL 100 MG TAB PO SCH (09:50)
[2021-11-19] MEDS: CHOLECALCIFEROL (VITD3) 2,000 UNIT CAP/TAB PO SCH (09:50)
[2021-11-19] MEDS: PANTOPRAZOLE 40 MG TAB PO SCH (09:50)
[2021-11-19] MEDS: ENOXAPARIN SOD 40 MG/0.4 ML SYRINGE SC SCH (09:51)
[2021-11-19] MEDS: MORPHINE SULFATE INJECTION 2 MG/ML SYRG IV PRN ×2 (09:59→22:12)
[2021-11-19 13:00] VITALS: BP 121/59
[2021-11-19 17:00] VITALS: BP 131/58
[2021-11-19] MEDS: Juven Fruit Punch Powder PACKET 28.8gm PO SCH (18:00)
[2021-11-19 22:00] VITALS: BP 131/81
[2021-11-19] MEDS: INSULIN LANTUS (GLARGINE) 1 /0.01ml (100units/ml) SC SCH (23:13)
[2021-11-20] VITALS (7 sets, daily range): BP systolic 120–168; BP diastolic 68–95
[2021-11-20] MEDS: HYDROcodone-ACET 5/325MG TAB PO PRN ×3 (04:01→21:44)
[2021-11-20 05:54] LABS: Basophils # (auto) 0.1 10 ^3/uL (0-0.2); Basophils % (auto) 0.8 % (0.0-2.0); Eosinophils # (auto) 0.4 10 ^3/uL (0-0.8); Eosinophils % (auto) 2.9 % (0.0-7.0); Hematocrit 30.7 % (41.0-53.0); Hemoglobin 10.9 g/dL (13.5-17.5); Lymphocytes # (auto) 1.2 10 ^3/uL (0.4-5.4); Lymphocytes % (auto) 7.9 % (10.0-50.0); Mean Corpuscular Hgb Conc. 35.4 g/dL (32.0-36.0); Mean Corpuscular Volume 87.6 fL (80.0-100.0); Monocytes # (auto) 1.7 10 ^3/uL (0-1.3); Monocytes % (auto) 10.8 % (0.0-12.0); Neutrophils % (auto) 77.6 % (37.0-80.0); Nucleated Red Blood Cells % 0.2 %; Red Cell Distribution Width 14.7 % (11.8-14.3); White Blood Cell 15.4 10^3/uL (4.4-10.8)
[2021-11-20] MEDS: ACCU-CHEK COMFORT CURVE STRIP VI SCH ×4 (05:56→23:26)
[2021-11-20] MEDS: InsuLIN REG 1unit/0.01ml Soln (100units/ml) SC SCH ×4 (05:56→23:29)
[2021-11-20 06:16] LABS: Potassium 3.5 mmol/L (3.5-5.1)
[2021-11-20 06:23] LABS: Albumin 1.7 g/dL (3.4-5.0); Bilirubin, Direct 0.3 mg/dL (0-0.2); Bilirubin, Total 0.5 mg/dL (0.2-1.0); Total Protein 5.5 g/dL (6.4-8.2)
[2021-11-20] MEDS: Juven Fruit Punch Powder PACKET 28.8gm PO SCH ×2 (08:20→18:33)
[2021-11-20] MEDS: CILOSTAZOL 100 MG TAB PO SCH ×2 (09:45→21:44)
[2021-11-20] MEDS: CLOPIDOGREL BISULFATE 75 MG TAB PO SCH (09:45)
[2021-11-20] MEDS: PANTOPRAZOLE 40 MG TAB PO SCH (09:46)
[2021-11-20] MEDS: CHOLECALCIFEROL (VITD3) 2,000 UNIT CAP/TAB PO SCH (09:46)
[2021-11-20] MEDS: ENOXAPARIN SOD 40 MG/0.4 ML SYRINGE SC SCH (09:47)
[2021-11-20] MEDS: MORPHINE SULFATE INJECTION 2 MG/ML SYRG IV PRN ×2 (09:48→17:37)
[2021-11-20] MEDS: BUDESONIDE (INHALATION) 0.5 MG/2 ML NEB NEB SCH ×2 (16:55→21:39)
[2021-11-20] MEDS: SODIUM CHLORIDE 0.9% 1,000 ML IV SCH (17:11)
[2021-11-20] MEDS: INSULIN LANTUS (GLARGINE) 1 /0.01ml (100units/ml) SC SCH (23:28)
[2021-11-21 05:00] VITALS: BP 147/69
[2021-11-21] MEDS: ACCU-CHEK COMFORT CURVE STRIP VI SCH ×3 (05:24→17:29)
[2021-11-21] MEDS: InsuLIN REG 1unit/0.01ml Soln (100units/ml) SC SCH ×3 (05:24→17:29)
[2021-11-21] MEDS: LORazepam 0.5 MG TAB PO PRN (05:25)
[2021-11-21] MEDS: Juven Fruit Punch Powder PACKET 28.8gm PO SCH ×2 (08:00→19:03)
[2021-11-21 09:00] VITALS: BP 147/81
[2021-11-21] MEDS: CILOSTAZOL 100 MG TAB PO SCH ×2 (10:06→22:18)
[2021-11-21] MEDS: ENOXAPARIN SOD 40 MG/0.4 ML SYRINGE SC SCH (10:07)
[2021-11-21] MEDS: CLOPIDOGREL BISULFATE 75 MG TAB PO SCH (10:07)
[2021-11-21] MEDS: CHOLECALCIFEROL (VITD3) 2,000 UNIT CAP/TAB PO SCH (10:07)
[2021-11-21] MEDS: MORPHINE SULFATE INJECTION 2 MG/ML SYRG IV PRN (10:08)
[2021-11-21] MEDS: ALBUTEROL SULF 2.5 MG/0.5ML(0.5%) NEB SOLN NEB PRN ×2 (10:14→18:06)
[2021-11-21] MEDS: IPRATROPIUM BROM 0.5 MG/2.5ML INH SOL NEB PRN ×2 (10:14→18:06)
[2021-11-21] MEDS: BUDESONIDE (INHALATION) 0.5 MG/2 ML NEB NEB SCH ×2 (10:14→18:06)
[2021-11-21] MEDS: PANTOPRAZOLE 40 MG TAB PO SCH (10:17)
[2021-11-21 13:00] VITALS: BP 156/81
[2021-11-21 17:00] VITALS: BP 132/75
[2021-11-21] MEDS: HYDROcodone-ACET 5/325MG TAB PO PRN (20:02)
[2021-11-21] MEDS: SODIUM CHLORIDE 0.9% 1,000 ML IV SCH (21:00)
[2021-11-21 22:00] VITALS: BP 142/72
[2021-11-21] MEDS: INSULIN LANTUS (GLARGINE) 1 /0.01ml (100units/ml) SC SCH (22:19)
[2021-11-22] MEDS: ACCU-CHEK COMFORT CURVE STRIP VI SCH ×4 (00:43→18:00)
[2021-11-22] MEDS: InsuLIN REG 1unit/0.01ml Soln (100units/ml) SC SCH ×4 (00:49→18:00)
[2021-11-22 05:00] VITALS: BP 149/71
[2021-11-22] MEDS: Juven Fruit Punch Powder PACKET 28.8gm PO SCH ×2 (08:00→18:00)
[2021-11-22 09:00] VITALS: BP 132/66
[2021-11-22] MEDS: CLOPIDOGREL BISULFATE 75 MG TAB PO SCH (09:26)
[2021-11-22] MEDS: PANTOPRAZOLE 40 MG TAB PO SCH (09:26)
[2021-11-22] MEDS: CHOLECALCIFEROL (VITD3) 2,000 UNIT CAP/TAB PO SCH (09:27)
[2021-11-22] MEDS: CILOSTAZOL 100 MG TAB PO SCH ×2 (09:27→22:29)
[2021-11-22] MEDS: HYDROcodone-ACET 5/325MG TAB PO PRN ×2 (09:29→20:02)
[2021-11-22] MEDS: ENOXAPARIN SOD 40 MG/0.4 ML SYRINGE SC SCH (10:00)
[2021-11-22 11:04] LABS: Basophils # (auto) 0.1 10 ^3/uL (0-0.2); Basophils % (auto) 0.5 % (0.0-2.0); Eosinophils # (auto) 0.2 10 ^3/uL (0-0.8); Eosinophils % (auto) 1.1 % (0.0-7.0); Hematocrit 36.5 % (41.0-53.0); Hemoglobin 12.2 g/dL (13.5-17.5); Lymphocytes # (auto) 1.2 10 ^3/uL (0.4-5.4); Lymphocytes % (auto) 7.1 % (10.0-50.0); Mean Corpuscular Hemoglobin 29.2 pg (28.0-32.0); Mean Corpuscular Hgb Conc. 33.4 g/dL (32.0-36.0); Mean Corpuscular Volume 87.5 fL (80.0-100.0); Monocytes # (auto) 1.6 10 ^3/uL (0-1.3); Monocytes % (auto) 9.6 % (0.0-12.0); Neutrophils # (auto) 13.7 10 ^3/uL (1.6-8.6); Neutrophils % (auto) 81.7 % (37.0-80.0); Nucleated Red Blood Cells % 0.1 %; Red Blood Cells 4.17 10^6/uL (4.5-5.90); Red Cell Distribution Width 14.9 % (11.8-14.3); White Blood Cell 16.8 10^3/uL (4.4-10.8)
[2021-11-22 11:19] LABS: Calcium 8.4 mg/dL (8.5-10.1); Potassium 4.1 mmol/L (3.5-5.1)
[2021-11-22 11:21] LABS: BUN/Creatinine Ratio 22.1
[2021-11-22 14:00] VITALS: BP 150/83
[2021-11-22] MEDS ORDERED: FUROSEMIDE 40 MG/4 ML VIAL IV ONE (14:00)
[2021-11-22 17:00] VITALS: BP 144/77
[2021-11-22 22:00] VITALS: BP 105/53
[2021-11-22] MEDS: ALBUTEROL SULF 2.5 MG/0.5ML(0.5%) NEB SOLN NEB PRN (22:21)
[2021-11-22] MEDS: IPRATROPIUM BROM 0.5 MG/2.5ML INH SOL NEB PRN (22:22)
[2021-11-22] MEDS: BUDESONIDE (INHALATION) 0.5 MG/2 ML NEB NEB SCH (22:22)
[2021-11-22] MEDS: INSULIN LANTUS (GLARGINE) 1 /0.01ml (100units/ml) SC SCH (22:30)
[2021-11-23] MEDS: ACCU-CHEK COMFORT CURVE STRIP VI SCH ×4 (00:17→17:52)
[2021-11-23] MEDS: InsuLIN REG 1unit/0.01ml Soln (100units/ml) SC SCH ×4 (00:18→17:52)
[2021-11-23 05:00] VITALS: BP 126/73
[2021-11-23 06:55] LABS: Basophils # (auto) 0.1 10 ^3/uL (0-0.2); Basophils % (auto) 0.5 % (0.0-2.0); Eosinophils # (auto) 0.3 10 ^3/uL (0-0.8); Eosinophils % (auto) 2.1 % (0.0-7.0); Hematocrit 32.4 % (41.0-53.0); Hemoglobin 11.4 g/dL (13.5-17.5); Lymphocytes # (auto) 1.3 10 ^3/uL (0.4-5.4); Lymphocytes % (auto) 9.1 % (10.0-50.0); Mean Corpuscular Hemoglobin 30.6 pg (28.0-32.0); Mean Corpuscular Hgb Conc. 35.3 g/dL (32.0-36.0); Mean Corpuscular Volume 86.6 fL (80.0-100.0); Monocytes # (auto) 1.6 10 ^3/uL (0-1.3); Monocytes % (auto) 11.7 % (0.0-12.0); Neutrophils # (auto) 10.8 10 ^3/uL (1.6-8.6); Neutrophils % (auto) 76.6 % (37.0-80.0); Nucleated Red Blood Cells % 0.1 %; Red Blood Cells 3.74 10^6/uL (4.5-5.90); Red Cell Distribution Width 14.8 % (11.8-14.3)
[2021-11-23 07:11] LABS: Calcium 7.9 mg/dL (8.5-10.1); Magnesium 1.5 mg/dL (1.6-2.6); Potassium 3.1 mmol/L (3.5-5.1)
[2021-11-23 07:17] LABS: BUN/Creatinine Ratio 26.1; INR 1.14 (0.9-1.15)
[2021-11-23] MEDS: HYDROcodone-ACET 5/325MG TAB PO PRN ×2 (07:59→19:54)
[2021-11-23 08:00] VITALS: BP 127/74
[2021-11-23] MEDS: Juven Fruit Punch Powder PACKET 28.8gm PO SCH (08:00)
[2021-11-23] MEDS ORDERED: FUROSEMIDE 20 MG TAB PO SCH (10:00)
[2021-11-23] MEDS: ENOXAPARIN SOD 40 MG/0.4 ML SYRINGE SC SCH ×2 (10:00→10:41)
[2021-11-23] MEDS ORDERED: POTASSIUM EFFERVESENT TAB 25 MEQ PO ONE (10:00)
[2021-11-23] MEDS: BUDESONIDE (INHALATION) 0.5 MG/2 ML NEB NEB SCH ×2 (10:07→22:14)
[2021-11-23] MEDS: IPRATROPIUM BROM 0.5 MG/2.5ML INH SOL NEB PRN ×2 (10:07→22:14)
[2021-11-23] MEDS: ALBUTEROL SULF 2.5 MG/0.5ML(0.5%) NEB SOLN NEB PRN ×2 (10:08→22:14)
[2021-11-23] MEDS: CILOSTAZOL 100 MG TAB PO SCH ×2 (10:38→21:47)
[2021-11-23] MEDS: BENAZEPRIL HCL 10 MG TAB PO SCH (10:40)
[2021-11-23] MEDS: MAGNESIUM SULFATE 1GM/100ML 100 ML IV SCH ×2 (10:40→12:22)
[2021-11-23] MEDS: CLOPIDOGREL BISULFATE 75 MG TAB PO SCH (10:41)
[2021-11-23] MEDS: PANTOPRAZOLE 40 MG TAB PO SCH (10:41)
[2021-11-23] MEDS: ALLOPURINOL 300 MG TAB PO SCH (10:41)
[2021-11-23] MEDS: CHOLECALCIFEROL (VITD3) 2,000 UNIT CAP/TAB PO SCH (10:43)
[2021-11-23] MEDS ORDERED: POTASSIUM CHL 20 Meq TABLET PO ONE (11:30)
[2021-11-23] MEDS ORDERED: FUROSEMIDE 20 MG/2 ML VIAL IV ONE (11:30)
[2021-11-23] MEDS ORDERED: MORPHINE SULFATE INJECTION 2 MG/ML SYRG IV PRN (11:30)
[2021-11-23] MEDS ORDERED: POTA1TAB61 PO (11:34)
[2021-11-23] MEDS ORDERED: PANT40TA2 PO (11:34)
[2021-11-23] MEDS ORDERED: CILO100T PO (11:34)
[2021-11-23] MEDS ORDERED: CLOP75TA28 PO (11:34)
[2021-11-23] MEDS ORDERED: DOCU-94 PO (11:34)
[2021-11-23] MEDS ORDERED: ALBUAER3 IN (11:34)
[2021-11-23] MEDS ORDERED: CHOL20007 PO (11:34)
[2021-11-23] MEDS ORDERED: FURO1TAB33 PO (11:35)
[2021-11-23 12:00] VITALS: BP 89/50
[2021-11-23 16:00] VITALS: BP 135/66
[2021-11-23] MEDS: INSULIN LANTUS (GLARGINE) 1 /0.01ml (100units/ml) SC SCH (21:48)
[2021-11-23 22:00] VITALS: BP 102/57
[2021-11-24 05:00] VITALS: BP 112/64
[2021-11-24] MEDS: ACCU-CHEK COMFORT CURVE STRIP VI SCH ×5 (05:55→21:52)
[2021-11-24] MEDS: InsuLIN REG 1unit/0.01ml Soln (100units/ml) SC SCH ×4 (05:55→18:00)
[2021-11-24] MEDS: IPRATROPIUM BROM 0.5 MG/2.5ML INH SOL NEB PRN ×2 (06:01→17:41)
[2021-11-24] MEDS: BUDESONIDE (INHALATION) 0.5 MG/2 ML NEB NEB SCH ×2 (06:01→17:41)
[2021-11-24] MEDS: ALBUTEROL SULF 2.5 MG/0.5ML(0.5%) NEB SOLN NEB PRN ×2 (06:01→17:41)
[2021-11-24 06:49] LABS: Basophils # (auto) 0.1 10 ^3/uL (0-0.2); Basophils % (auto) 0.6 % (0.0-2.0); Eosinophils # (auto) 0.3 10 ^3/uL (0-0.8); Eosinophils % (auto) 2.6 % (0.0-7.0); Hematocrit 32.8 % (41.0-53.0); Hemoglobin 11.4 g/dL (13.5-17.5); Lymphocytes # (auto) 1.2 10 ^3/uL (0.4-5.4); Lymphocytes % (auto) 9.3 % (10.0-50.0); Mean Corpuscular Hemoglobin 30.2 pg (28.0-32.0); Mean Corpuscular Hgb Conc. 34.8 g/dL (32.0-36.0); Mean Corpuscular Volume 86.8 fL (80.0-100.0); Monocytes # (auto) 1.7 10 ^3/uL (0-1.3); Monocytes % (auto) 12.9 % (0.0-12.0); Neutrophils # (auto) 9.8 10 ^3/uL (1.6-8.6); Neutrophils % (auto) 74.6 % (37.0-80.0); Nucleated Red Blood Cells % 0.1 %; Red Blood Cells 3.78 10^6/uL (4.5-5.90); Red Cell Distribution Width 14.6 % (11.8-14.3); White Blood Cell 13.1 10^3/uL (4.4-10.8)
[2021-11-24 07:03] LABS: Magnesium 1.5 mg/dL (1.6-2.6)
[2021-11-24] MEDS: Juven Fruit Punch Powder PACKET 28.8gm PO SCH ×3 (08:00→18:00)
[2021-11-24] MEDS: CILOSTAZOL 100 MG TAB PO SCH ×2 (08:28→22:07)
[2021-11-24] MEDS: CLOPIDOGREL BISULFATE 75 MG TAB PO SCH (08:28)
[2021-11-24] MEDS: CHOLECALCIFEROL (VITD3) 2,000 UNIT CAP/TAB PO SCH (08:29)
[2021-11-24] MEDS: PANTOPRAZOLE 40 MG TAB PO SCH (08:29)
[2021-11-24] MEDS: ENOXAPARIN SOD 40 MG/0.4 ML SYRINGE SC SCH (08:31)
[2021-11-24] MEDS: ALLOPURINOL 300 MG TAB PO SCH (08:31)
[2021-11-24] MEDS: BENAZEPRIL HCL 10 MG TAB PO SCH (08:32)
[2021-11-24] MEDS: HYDROcodone-ACET 5/325MG TAB PO PRN ×5 (08:35→22:07)
[2021-11-24 09:00] VITALS: BP 110/52
[2021-11-24] MEDS ORDERED: POTASSIUM CHL 20 Meq TABLET PO ONE (10:15)
[2021-11-24] MEDS: MAGNESIUM SULFATE 1GM/100ML 100 ML IV SCH ×2 (11:20→13:11)
[2021-11-24] MEDS: FUROSEMIDE 20 MG/2 ML VIAL IV SCH (13:39)
[2021-11-24 17:00] VITALS: BP 111/55
[2021-11-24 22:00] VITALS: BP 108/50
[2021-11-24] MEDS: INSULIN LANTUS (GLARGINE) 1 /0.01ml (100units/ml) SC SCH (22:17)
[2021-11-25] MEDS: InsuLIN REG 1unit/0.01ml Soln (100units/ml) SC SCH ×4 (01:26→17:19)
[2021-11-25 05:00] VITALS: BP 116/60
[2021-11-25] MEDS: ACCU-CHEK COMFORT CURVE STRIP VI SCH ×3 (06:00→17:18)
[2021-11-25] MEDS: BUDESONIDE (INHALATION) 0.5 MG/2 ML NEB NEB SCH (06:38)
[2021-11-25] MEDS: IPRATROPIUM BROM 0.5 MG/2.5ML INH SOL NEB PRN (06:39)
[2021-11-25] MEDS: ALBUTEROL SULF 2.5 MG/0.5ML(0.5%) NEB SOLN NEB PRN (06:39)
[2021-11-25 06:50] LABS: Potassium 3.5 mmol/L (3.5-5.1)
[2021-11-25] MEDS: Juven Fruit Punch Powder PACKET 28.8gm PO SCH (08:00)
[2021-11-25 09:00] VITALS: BP 144/68
[2021-11-25] MEDS: CILOSTAZOL 100 MG TAB PO SCH (09:32)
[2021-11-25] MEDS: CHOLECALCIFEROL (VITD3) 2,000 UNIT CAP/TAB PO SCH (09:32)
[2021-11-25] MEDS: BENAZEPRIL HCL 10 MG TAB PO SCH (09:33)
[2021-11-25] MEDS: CLOPIDOGREL BISULFATE 75 MG TAB PO SCH (09:34)
[2021-11-25] MEDS: HYDROcodone-ACET 5/325MG TAB PO PRN (09:34)
[2021-11-25] MEDS: ALLOPURINOL 300 MG TAB PO SCH (09:34)
[2021-11-25] MEDS: PANTOPRAZOLE 40 MG TAB PO SCH (09:34)
[2021-11-25] MEDS: FUROSEMIDE 20 MG/2 ML VIAL IV SCH (09:35)
[2021-11-25] MEDS: ENOXAPARIN SOD 40 MG/0.4 ML SYRINGE SC SCH (09:36)
[2021-11-25] MEDS ORDERED: POTASSIUM CHL 20 Meq TABLET PO SCH (10:00)
[2021-11-25 13:00] VITALS: BP 95/46
[2021-11-25 16:34] VITALS: BP 128/66
== END 2021-11-25 19:47 | DRG 314 ==
LOC: ER 10:32 → CENTRAL 14:56 → OVERFLOW 23:16 → TELE-CENTR 11-11 09:59 → CENTRAL 11-24 14:32
PROVIDERS: ADMIT Hospitalist; ATTEND Internal Medicine
PROC: 04JY3ZZ Inspection of Lower Artery, Percutaneous Approach (ICD-10-PCS; principal; 2021-11-11)
PROC: B41GYZZ Fluoroscopy of Left Lower Extremity Arteries using Other Contrast (ICD-10-PCS; 2021-11-11)
PROC: B41FYZZ Fluoroscopy of Right Lower Extremity Arteries using Other Contrast (ICD-10-PCS; 2021-11-11)
DX: T82.898A Other specified complication of vascular prosthetic devices, implants and grafts, initial encounter (principal); I50.23 Acute on chronic systolic (congestive) heart failure; N17.0 Acute kidney failure with tubular necrosis; G93.41 Metabolic encephalopathy; J96.00 Acute respiratory failure, unspecified whether with hypoxia or hypercapnia; F05 Delirium due to known physiological condition; E11.51 Type 2 diabetes mellitus with diabetic peripheral angiopathy without gangrene; Z66 Do not resuscitate; Z20.822 Contact with and (suspected) exposure to COVID-19; E88.09 Other disorders of plasma-protein metabolism, not elsewhere classified; J44.9 Chronic obstructive pulmonary disease, unspecified; D72.829 Elevated white blood cell count, unspecified; I25.10 Atherosclerotic heart disease of native coronary artery without angina pectoris; M1A.9XX0 Chronic gout, unspecified, without tophus (tophi); E78.5 Hyperlipidemia, unspecified; E83.42 Hypomagnesemia; E87.6 Hypokalemia; F17.200 Nicotine dependence, unspecified, uncomplicated; I11.0 Hypertensive heart disease with heart failure; E11.40 Type 2 diabetes mellitus with diabetic neuropathy, unspecified; Y83.2 Surgical operation with anastomosis, bypass or graft as the cause of abnormal reaction of the patient, or of later complication, without mention of misadventure at the time of the procedure; R74.01 Elevation of levels of liver transaminase levels; I25.2 Old myocardial infarction; Z95.1 Presence of aortocoronary bypass graft; Z83.3 Family history of diabetes mellitus; Z85.828 Personal history of other malignant neoplasm of skin; Z86.718 Personal history of other venous thrombosis and embolism; Z79.84 Long term (current) use of oral hypoglycemic drugs
CPT/HCPCS: 36415; 70450; 71045; 74176; 75716; 76700; 80048; 80053; 80061; 80076; 80202; 80307; 81001; 82306; 82728; 82962; 83036; 83605; 83735; 83880; 84100; 84132; 84443; 84484; 84550; 85007; 85025; 85027; 85379; 85610; 85730; 86803; 87040; 87086; 87340; 87426; 93005; 93306; 93925; 93971; 94640; 95819; 97110; 97116; 97163; 97530; 99152; 99153; C1769; C9113; G0378; J0696; J1815; J2250; J2543; J3490

== ENCOUNTER 2022-01-18 11:18 | Inpatient (IN) | payer OTHER ==
[~2022-01-18] VITALS: Ht 177.8 cm; Wt 84.3 kg
[~2022-01-18 11:18] MED LIST: ALBUAER3 IN; ALLO300T2 PO; BENA20TA14 PO; CILO100T PO; CLOP75TA28 PO; CLOP75TA70 PO; DOCU-94 PO; DULA3INJ SC; FLUT50SP NAS; FURO1TAB33 PO; KAY60LQ PO; METF-371 PO; PANT40TA2 PO
[2022-01-18] MEDS ORDERED: ONDANSETRON HCL 4 MG/2 ML VIAL IV ONE (11:30)
[2022-01-18] MEDS ORDERED: SODIUM CHLORIDE 0.9% 500 ML IV ONE (11:30)
[2022-01-18] MEDS ORDERED: MORPHINE SULFATE INJECTION 2 MG/ML SYRG IV ONE (11:30)
[2022-01-18 12:21] LABS: Basophils # (auto) 0.1 10 ^3/uL (0-0.2); Basophils % (auto) 0.4 % (0.0-2.0); Eosinophils # (auto) 0 10 ^3/uL (0-0.8); Eosinophils % (auto) 0.1 % (0.0-7.0); Hematocrit 35.4 % (41.0-53.0); Hemoglobin 11.6 g/dL (13.5-17.5); Lymphocytes # (auto) 0.8 10 ^3/uL (0.4-5.4); Lymphocytes % (auto) 4.3 % (10.0-50.0); Mean Corpuscular Hemoglobin 29.2 pg (28.0-32.0); Mean Corpuscular Hgb Conc. 32.8 g/dL (32.0-36.0); Mean Corpuscular Volume 88.9 fL (80.0-100.0); Monocytes # (auto) 1.5 10 ^3/uL (0-1.3); Monocytes % (auto) 7.7 % (0.0-12.0); Neutrophils % (auto) 87.5 % (37.0-80.0); Red Blood Cells 3.99 10^6/uL (4.5-5.90); White Blood Cell 19.4 10^3/uL (4.4-10.8)
[2022-01-18 12:47] LABS: Calcium 9.2 mg/dL (8.5-10.1)
[2022-01-18 12:49] LABS: Bilirubin, Total 0.4 mg/dL (0.2-1.0); Total Protein 8.1 g/dL (6.4-8.2)
[2022-01-18 12:55] LABS: Potassium 5.3 mmol/L (3.5-5.1)
[2022-01-18 15:35] LABS: INR 1.06 (0.9-1.15); Partial Thromboplastin Time 28.2 sec (23.6-33.0)
[2022-01-18] MEDS ORDERED: DEXTROSE (50%) 50ML SYRG IV ONE (16:00)
[2022-01-18] MEDS ORDERED: NITROGLYCERIN 0.4 MG SL TAB SL PRN (16:00)
[2022-01-18] MEDS ORDERED: MORPHINE SULFATE INJECTION 2 MG/ML SYRG IV PRN ×2 (16:00)
[2022-01-18] MEDS ORDERED: ALBUTEROL SULF 2.5 MG/0.5ML(0.5%) NEB SOLN NEB ONE (16:00)
[2022-01-18] MEDS ORDERED: SODIUM BICARBONATE 8.4% INJ 50ML SYRINGE IV ONE (16:00)
[2022-01-18] MEDS ORDERED: CALCIUM CHL 100MG/ML 1,000 MG in D5W 5% 100 ML IV ONE ×2 (16:00→16:30)
[2022-01-18] MEDS ORDERED: DEXTROSE (50%) 50ML SYRG IV PRN (16:00)
[2022-01-18] MEDS ORDERED: SODIUM ZIRCONIUM CYCL 10 GM PAK PO ONE (16:00)
[2022-01-18] MEDS ORDERED: LACTATED RINGER'S 1,000 ML IV SCH (16:00)
[2022-01-18] MEDS ORDERED: ONDANSETRON HCL 4 MG/2 ML VIAL IV PRN ×2 (16:00)
[2022-01-18] MEDS ORDERED: InsuLIN REG 1unit/0.01ml Soln (100units/ml) IV ONE (16:00)
[2022-01-18] MEDS ORDERED: FUROSEMIDE 40 MG/4 ML VIAL IV ONE (16:00)
[2022-01-18] MEDS ORDERED: ALBUTEROL SULF 2.5 MG/0.5ML(0.5%) NEB SOLN ONE (16:21)
[2022-01-18] MEDS: ACCU-CHEK COMFORT CURVE STRIP VI SCH ×2 (18:22→22:34)
[2022-01-18] MEDS: InsuLIN REG 1unit/0.01ml Soln (100units/ml) SC SCH ×2 (18:57→22:44)
[2022-01-18] MEDS: SODIUM ZIRCONIUM CYCL 10 GM PAK PO SCH (22:00)
[2022-01-19] VITALS (7 sets, daily range): BP systolic 99–137; BP diastolic 48–70
[2022-01-19 00:39] LABS: Magnesium 1.7 mg/dL (1.6-2.6); Phosphorus 3.3 mg/dL (2.5-4.90)
[2022-01-19 02:28] LABS: Urine Bacteria NONE SEEN /hpf (None Seen); Urine Blood Negative /uL (Negative); Urine Specific Gravity 1.013 (1.001-1.035); Urine WBC 8 /hpf (0 - 3); Urine WBC Clumps PRESENT /hpf (None Seen)
[2022-01-19 02:32] LABS: INR 1.08 (0.9-1.15); Partial Thromboplastin Time 31.1 sec (23.6-33.0)
[2022-01-19 02:33] LABS: Alcohol, Urine < 3.0 mg/dL (0-10); Amphetamine Screen, Urine NEGATIVE (NEGATIVE); Barbiturate Scree,Urine NEGATIVE (NEGATIVE); Benzodiazephine Screen, Urine NEGATIVE (NEGATIVE); Cannabinoid Screen, Urine NEGATIVE (NEGATIVE); Cocaine Screen, Urine NEGATIVE (NEGATIVE); Opiate Scree,Urine NEGATIVE (NEGATIVE); Phencyclidine Screen, Urine NEGATIVE (NEGATIVE)
[2022-01-19] MEDS ORDERED: ACETAMINOPHEN 325 MG TAB PO PRN (04:00)
[2022-01-19] MEDS ORDERED: IPRATROPIUM BROM 0.5 MG/2.5ML INH SOL NEB ONE (04:00)
[2022-01-19] MEDS ORDERED: hydrALAZINE HCL 20 MG/ML VL IV PRN (04:00)
[2022-01-19] MEDS ORDERED: BUDESONIDE (INHALATION) 0.5 MG/2 ML NEB NEB ONE (04:00)
[2022-01-19] MEDS ORDERED: LACTULOSE 20Gm/30ML SOLN PO PRN (04:00)
[2022-01-19] MEDS ORDERED: FAMOTIDINE (10MG/ML) 2ML VL IV ONE (04:00)
[2022-01-19] MEDS ORDERED: ALBUTEROL SULF 2.5 MG/0.5ML(0.5%) NEB SOLN NEB ONE (04:00)
[2022-01-19] MEDS ORDERED: PIPERACILLIN-TAZOB 3.375GM 100 ML IV ONE (04:00)
[2022-01-19] MEDS ORDERED: HYDROcodone-ACET 5/325MG TAB PO ONE (04:00)
[2022-01-19] MEDS ORDERED: LORazepam 0.5 MG TAB PO PRN (04:00)
[2022-01-19] MEDS ORDERED: DOCUSATE SOD 100 MG CAP PO PRN (04:00)
[2022-01-19] MEDS: SODIUM ZIRCONIUM CYCL 10 GM PAK PO SCH (06:00)
[2022-01-19] MEDS: InsuLIN REG 1unit/0.01ml Soln (100units/ml) SC SCH ×4 (06:12→22:27)
[2022-01-19] MEDS: ACCU-CHEK COMFORT CURVE STRIP VI SCH ×4 (06:12→22:26)
[2022-01-19] MEDS: IPRATROPIUM BROM 0.5 MG/2.5ML INH SOL NEB SCH ×2 (06:45→09:37)
[2022-01-19] MEDS: BUDESONIDE (INHALATION) 0.5 MG/2 ML NEB NEB SCH (06:45)
[2022-01-19 06:52] LABS: Basophils # (auto) 0.1 10 ^3/uL (0-0.2); Basophils % (auto) 0.7 % (0.0-2.0); Eosinophils # (auto) 0.4 10 ^3/uL (0-0.8); Eosinophils % (auto) 2.9 % (0.0-7.0); Hematocrit 30.3 % (41.0-53.0); Hemoglobin 9.8 g/dL (13.5-17.5); Lymphocytes # (auto) 1.3 10 ^3/uL (0.4-5.4); Lymphocytes % (auto) 10.2 % (10.0-50.0); Mean Corpuscular Hemoglobin 28.7 pg (28.0-32.0); Mean Corpuscular Hgb Conc. 32.5 g/dL (32.0-36.0); Mean Corpuscular Volume 88.2 fL (80.0-100.0); Monocytes # (auto) 1.4 10 ^3/uL (0-1.3); Monocytes % (auto) 11.1 % (0.0-12.0); Neutrophils # (auto) 9.6 10 ^3/uL (1.6-8.6); Neutrophils % (auto) 75.1 % (37.0-80.0); Nucleated Red Blood Cells % 0.1 %; Red Blood Cells 3.44 10^6/uL (4.5-5.90); Red Cell Distribution Width 16.1 % (11.8-14.3); White Blood Cell 12.8 10^3/uL (4.4-10.8)
[2022-01-19 07:14] LABS: Magnesium 1.7 mg/dL (1.6-2.6); Potassium 4.2 mmol/L (3.5-5.1)
[2022-01-19 07:21] LABS: Albumin 2.5 g/dL (3.4-5.0); BUN/Creatinine Ratio 21.9; Bilirubin, Total 0.6 mg/dL (0.2-1.0); Calcium 8.7 mg/dL (8.5-10.1); Phosphorus 3.4 mg/dL (2.5-4.90); Total Protein 6.6 g/dL (6.4-8.2)
[2022-01-19 07:27] LABS: INR 1.1 (0.9-1.15); Partial Thromboplastin Time 31.6 sec (23.6-33.0)
[2022-01-19 07:32] LABS: CRP High Sensitivity 8.85 mg/dL (< 0.3)
[2022-01-19 07:38] LABS: Thyroid Stimulating Hormone 2.5 uIU/mL (0.358-3.74)
[2022-01-19 07:52] LABS: Protein, Urine 35.3 mg/dL (0.0-11.9)
[2022-01-19] MEDS: CALCIUM W/VIT D (600MG/400IU) TAB PO SCH ×2 (08:00→19:21)
[2022-01-19 09:01] LABS: Uric Acid 6.2 mg/dL (3.5-7.2)
[2022-01-19] MEDS: PANTOPRAZOLE 40 MG TAB PO SCH (09:39)
[2022-01-19] MEDS: FUROSEMIDE 20 MG TAB PO SCH ×2 (09:40→09:42)
[2022-01-19] MEDS: MORPHINE SULFATE INJECTION 2 MG/ML SYRG IV PRN (09:40)
[2022-01-19] MEDS: ASPirin-EC 81 mg tab PO SCH (10:00)
[2022-01-19] MEDS: CILOSTAZOL 100 MG TAB PO SCH ×2 (10:00→21:45)
[2022-01-19] MEDS: ENOXAPARIN SOD 40 MG/0.4 ML SYRINGE SC SCH (10:00)
[2022-01-19] MEDS ORDERED: ALLOPURINOL 300 MG TAB PO SCH (10:00)
[2022-01-19] MEDS ORDERED: SODIUM CHLORIDE 0.9% 1,000 ML IV SCH (11:15)
[2022-01-19] MEDS: PIPERACILLIN-TAZOB 3.375GM 100 ML IV SCH ×2 (12:45→19:22)
[2022-01-19] MEDS: ALBUTEROL SULF 2.5 MG/0.5ML(0.5%) NEB SOLN NEB PRN (18:18)
[2022-01-19] MEDS: ATORVASTATIN 20 MG TAB PO SCH (22:26)
[2022-01-20] MEDS: PIPERACILLIN-TAZOB 3.375GM 100 ML IV SCH ×2 (01:00→06:20)
[2022-01-20 05:03] VITALS: BP 128/69
[2022-01-20] MEDS: BUDESONIDE (INHALATION) 0.5 MG/2 ML NEB NEB SCH ×2 (05:25→22:08)
[2022-01-20 06:24] LABS: BUN/Creatinine Ratio 20.7; Basophils # (auto) 0.1 10 ^3/uL (0-0.2); Basophils % (auto) 0.7 % (0.0-2.0); Calcium 8.5 mg/dL (8.5-10.1); Eosinophils # (auto) 0.6 10 ^3/uL (0-0.8); Eosinophils % (auto) 4.2 % (0.0-7.0); Hematocrit 28.2 % (41.0-53.0); Hemoglobin 9.5 g/dL (13.5-17.5); Lymphocytes # (auto) 1.2 10 ^3/uL (0.4-5.4); Lymphocytes % (auto) 8.5 % (10.0-50.0); Mean Corpuscular Hemoglobin 29.7 pg (28.0-32.0); Mean Corpuscular Hgb Conc. 33.8 g/dL (32.0-36.0); Mean Corpuscular Volume 87.8 fL (80.0-100.0); Monocytes # (auto) 1.9 10 ^3/uL (0-1.3); Neutrophils # (auto) 10.7 10 ^3/uL (1.6-8.6); Neutrophils % (auto) 73.6 % (37.0-80.0); Potassium 3.7 mmol/L (3.5-5.1); Red Blood Cells 3.21 10^6/uL (4.5-5.90); White Blood Cell 14.5 10^3/uL (4.4-10.8)
[2022-01-20] MEDS: ACCU-CHEK COMFORT CURVE STRIP VI SCH ×4 (06:41→22:11)
[2022-01-20] MEDS: InsuLIN REG 1unit/0.01ml Soln (100units/ml) SC SCH ×4 (06:43→22:14)
[2022-01-20] MEDS ORDERED: SUCCINYLCHOLINE CHLORIDE 20 MG/ML 10ML VIAL IV ONE (07:46)
[2022-01-20] MEDS ORDERED: BUPIVACAINE 0.5% P/F INJ 10 ML VIAL ONE (07:46)
[2022-01-20] MEDS: CALCIUM W/VIT D (600MG/400IU) TAB PO SCH ×2 (08:00→18:05)
[2022-01-20] MEDS ORDERED: ceFAZolin 1GM/50ML 100 ML IV ONE (08:11)
[2022-01-20] MEDS: BUPIVACAINE W/ EPINEPH 0.25% INJ 50ML MDV ONE ×2 (08:11→09:02)
[2022-01-20] MEDS ORDERED: fentaNYL CITRATE 100 MCG/2 ML VL ONE (08:21)
[2022-01-20] MEDS ORDERED: KETAMINE HCL 10 ML ONE (08:21)
[2022-01-20] MEDS ORDERED: MIDAZOLAM HCL 2MG/2ML 2ml VIAL (1mg/ml) ONE (08:21)
[2022-01-20] MEDS ORDERED: SODIUM CHLORIDE LOCK 10 ML ONE (08:22)
[2022-01-20] MEDS ORDERED: ONDANSETRON HCL 4 MG/2 ML VIAL ONE (08:22)
[2022-01-20] MEDS ORDERED: PROPOFOL 10 MG/ML 20 ML IV ONE (08:22)
[2022-01-20] MEDS ORDERED: LIDOCAINE 2% (LOCAL ANESTH.) PF 5ml SDV ONE (08:56)
[2022-01-20] MEDS: ASPirin-EC 81 mg tab PO SCH (09:01)
[2022-01-20] MEDS: ENOXAPARIN SOD 40 MG/0.4 ML SYRINGE SC SCH (09:02)
[2022-01-20] MEDS: PANTOPRAZOLE 40 MG TAB PO SCH (09:30)
[2022-01-20] MEDS: CILOSTAZOL 100 MG TAB PO SCH ×2 (09:30→22:10)
[2022-01-20] MEDS: FUROSEMIDE 20 MG TAB PO SCH (09:30)
[2022-01-20] MEDS ORDERED: LACTATED RINGER'S 1,000 ML IV SCH (09:45)
[2022-01-20] MEDS ORDERED: ceFAZolin 1GM/50ML 50 ML IV SCH (09:45)
[2022-01-20] MEDS ORDERED: ONDANSETRON HCL 4 MG/2 ML VIAL IV PRN (09:45)
[2022-01-20] MEDS ORDERED: MORPHINE SULFATE 4 MG/ML SYR/VIAL IV PRN (09:45)
[2022-01-20] MEDS ORDERED: HYDROmorphone HCL 2 MG/ML VL IV PRN (09:45)
[2022-01-20] MEDS ORDERED: FAMOTIDINE (10MG/ML) 2ML VL IV SCH (10:00)
[2022-01-20] MEDS ORDERED: ALLOPURINOL 300 MG TAB PO SCH (10:00)
[2022-01-20] MEDS: LACTATED RINGER'S 1,000 ML IV SCH (12:15)
[2022-01-20] MEDS: SODIUM CHLOR 0.9% PF (SALINE LOCK) 10ML VIAL/SYR IV SCH ×2 (13:30→22:11)
[2022-01-20 17:00] VITALS: BP 150/85
[2022-01-20] MEDS: PIPERACILLIN-TAZOB 2.25GM 50 ML IV SCH (18:05)
[2022-01-20 22:00] VITALS: BP 130/68
[2022-01-20] MEDS: ATORVASTATIN 20 MG TAB PO SCH (22:10)
[2022-01-20] MEDS: MUPIROCIN 2% OINT 15gm or 22gm EACHNOSTRI SCH (22:15)
[2022-01-21] MEDS: PIPERACILLIN-TAZOB 2.25GM 50 ML IV SCH ×4 (00:04→17:59)
[2022-01-21 05:00] VITALS: BP 142/61
[2022-01-21] MEDS: SODIUM CHLOR 0.9% PF (SALINE LOCK) 10ML VIAL/SYR IV SCH ×3 (06:00→22:21)
[2022-01-21 06:15] LABS: Basophils # (auto) 0.1 10 ^3/uL (0-0.2); Basophils % (auto) 0.5 % (0.0-2.0); Eosinophils # (auto) 0 10 ^3/uL (0-0.8); Eosinophils % (auto) 0.1 % (0.0-7.0); Hematocrit 28.7 % (41.0-53.0); Hemoglobin 9.5 g/dL (13.5-17.5); Lymphocytes # (auto) 1.2 10 ^3/uL (0.4-5.4); Lymphocytes % (auto) 7.3 % (10.0-50.0); Mean Corpuscular Hemoglobin 29.4 pg (28.0-32.0); Mean Corpuscular Hgb Conc. 33.2 g/dL (32.0-36.0); Mean Corpuscular Volume 88.6 fL (80.0-100.0); Monocytes # (auto) 2.1 10 ^3/uL (0-1.3); Monocytes % (auto) 12.9 % (0.0-12.0); Neutrophils # (auto) 12.7 10 ^3/uL (1.6-8.6); Neutrophils % (auto) 79.2 % (37.0-80.0); Red Blood Cells 3.24 10^6/uL (4.5-5.90); Red Cell Distribution Width 16.2 % (11.8-14.3)
[2022-01-21 06:22] LABS: Albumin 2.1 g/dL (3.4-5.0); Calcium 8.5 mg/dL (8.5-10.1); Potassium 4.1 mmol/L (3.5-5.1)
[2022-01-21 06:26] LABS: BUN/Creatinine Ratio 24.8; Bilirubin, Total 0.5 mg/dL (0.2-1.0); Total Protein 6.8 g/dL (6.4-8.2)
[2022-01-21] MEDS: InsuLIN REG 1unit/0.01ml Soln (100units/ml) SC SCH ×4 (06:49→22:18)
[2022-01-21] MEDS: ACCU-CHEK COMFORT CURVE STRIP VI SCH ×4 (06:58→22:17)
[2022-01-21] MEDS: MORPHINE SULFATE INJECTION 2 MG/ML SYRG IV PRN ×2 (06:59→18:00)
[2022-01-21 08:30] VITALS: BP 133/64
[2022-01-21 09:00] VITALS: BP 133/64
[2022-01-21] MEDS: MUPIROCIN 2% OINT 15gm or 22gm EACHNOSTRI SCH ×2 (09:30→22:21)
[2022-01-21] MEDS: BUDESONIDE (INHALATION) 0.5 MG/2 ML NEB NEB SCH ×2 (09:51→22:14)
[2022-01-21] MEDS: HYDROcodone-ACET 5/325MG TAB PO PRN (10:28)
[2022-01-21] MEDS: PANTOPRAZOLE 40 MG TAB PO SCH (10:30)
[2022-01-21] MEDS: CALCIUM W/VIT D (600MG/400IU) TAB PO SCH ×2 (10:30→18:01)
[2022-01-21] MEDS: ASPirin-EC 81 mg tab PO SCH (10:30)
[2022-01-21] MEDS: CILOSTAZOL 100 MG TAB PO SCH ×2 (10:30→22:21)
[2022-01-21] MEDS: ENOXAPARIN SOD 40 MG/0.4 ML SYRINGE SC SCH (10:31)
[2022-01-21] MEDS: FUROSEMIDE 20 MG TAB PO SCH (10:36)
[2022-01-21] MEDS: ALLOPURINOL 100 MG TAB PO SCH (10:49)
[2022-01-21] MEDS: LACTATED RINGER'S 1,000 ML IV SCH (12:25)
[2022-01-21 12:53] VITALS: BP 106/51
[2022-01-21 17:00] VITALS: BP 141/56
[2022-01-21] MEDS: Glucerna Carbsteady SHAKE Vanilla 8oz PO SCH (18:01)
[2022-01-21] MEDS: cefTRIAXone 1GM/50ML D5W 50 ML IV SCH (21:34)
[2022-01-21 22:00] VITALS: BP 115/46
[2022-01-21] MEDS: ATORVASTATIN 20 MG TAB PO SCH (22:21)
[2022-01-22 05:00] VITALS: BP 115/67
[2022-01-22] MEDS: MORPHINE SULFATE INJECTION 2 MG/ML SYRG IV PRN ×2 (05:21→19:51)
[2022-01-22 05:55] LABS: Basophils # (auto) 0.1 10 ^3/uL (0-0.2); Basophils % (auto) 0.9 % (0.0-2.0); Eosinophils # (auto) 0.8 10 ^3/uL (0-0.8); Eosinophils % (auto) 6.2 % (0.0-7.0); Hematocrit 25.6 % (41.0-53.0); Hemoglobin 8.8 g/dL (13.5-17.5); Lymphocytes % (auto) 14.8 % (10.0-50.0); Mean Corpuscular Hgb Conc. 34.5 g/dL (32.0-36.0); Monocytes # (auto) 1.4 10 ^3/uL (0-1.3); Monocytes % (auto) 10.3 % (0.0-12.0); Neutrophils # (auto) 9.1 10 ^3/uL (1.6-8.6); Neutrophils % (auto) 67.8 % (37.0-80.0); Nucleated Red Blood Cells % 0.1 %; Red Blood Cells 2.94 10^6/uL (4.5-5.90); Red Cell Distribution Width 16.1 % (11.8-14.3); White Blood Cell 13.5 10^3/uL (4.4-10.8)
[2022-01-22] MEDS: SODIUM CHLOR 0.9% PF (SALINE LOCK) 10ML VIAL/SYR IV SCH ×3 (06:33→22:42)
[2022-01-22] MEDS: InsuLIN REG 1unit/0.01ml Soln (100units/ml) SC SCH ×4 (06:35→22:48)
[2022-01-22] MEDS: ACCU-CHEK COMFORT CURVE STRIP VI SCH ×4 (06:36→22:42)
[2022-01-22 07:19] LABS: Hematocrit 25.8 % (41.0-53.0); Hemoglobin 8.7 g/dL (13.5-17.5)
[2022-01-22] MEDS: Glucerna Carbsteady SHAKE Vanilla 8oz PO SCH ×3 (07:36→18:25)
[2022-01-22] MEDS: CALCIUM W/VIT D (600MG/400IU) TAB PO SCH ×2 (08:16→18:24)
[2022-01-22] MEDS: cefTRIAXone 1GM/50ML D5W 50 ML IV SCH (08:20)
[2022-01-22] MEDS: ENOXAPARIN SOD 40 MG/0.4 ML SYRINGE SC SCH (08:23)
[2022-01-22] MEDS: ALLOPURINOL 100 MG TAB PO SCH (08:23)
[2022-01-22] MEDS: PANTOPRAZOLE 40 MG TAB PO SCH (08:24)
[2022-01-22] MEDS: ASPirin-EC 81 mg tab PO SCH (08:24)
[2022-01-22] MEDS: CILOSTAZOL 100 MG TAB PO SCH ×2 (08:25→22:40)
[2022-01-22] MEDS: FUROSEMIDE 20 MG TAB PO SCH (08:26)
[2022-01-22] MEDS: MUPIROCIN 2% OINT 15gm or 22gm EACHNOSTRI SCH ×2 (08:27→22:42)
[2022-01-22] MEDS: HYDROcodone-ACET 5/325MG TAB PO PRN (08:30)
[2022-01-22] MEDS: ALBUTEROL SULF 2.5 MG/0.5ML(0.5%) NEB SOLN NEB PRN ×2 (08:54→19:02)
[2022-01-22] MEDS: BUDESONIDE (INHALATION) 0.5 MG/2 ML NEB NEB SCH ×2 (08:55→19:02)
[2022-01-22 09:00] VITALS: BP 108/54
[2022-01-22 09:53] VITALS: BP 112/62
[2022-01-22 13:00] VITALS: BP 109/53
[2022-01-22 17:00] VITALS: BP 130/69
[2022-01-22 22:00] VITALS: BP 119/57
[2022-01-22] MEDS: DOXYCYCLINE 100 MG TAB/CAP PO SCH (22:40)
[2022-01-22] MEDS: ATORVASTATIN 20 MG TAB PO SCH (22:40)
[2022-01-23] VITALS (7 sets, daily range): BP systolic 108–141; BP diastolic 54–84
[2022-01-23] MEDS: HYDROcodone-ACET 5/325MG TAB PO PRN ×2 (04:35→20:18)
[2022-01-23] MEDS: SODIUM CHLOR 0.9% PF (SALINE LOCK) 10ML VIAL/SYR IV SCH ×3 (06:00→21:39)
[2022-01-23 06:10] LABS: Hematocrit 24.7 % (41.0-53.0); Hemoglobin 8.3 g/dL (13.5-17.5)
[2022-01-23] MEDS: InsuLIN REG 1unit/0.01ml Soln (100units/ml) SC SCH ×4 (07:15→21:39)
[2022-01-23] MEDS: ACCU-CHEK COMFORT CURVE STRIP VI SCH ×4 (07:15→21:39)
[2022-01-23] MEDS: Glucerna Carbsteady SHAKE Vanilla 8oz PO SCH ×3 (08:00→18:00)
[2022-01-23] MEDS: MORPHINE SULFATE INJECTION 2 MG/ML SYRG IV PRN (09:35)
[2022-01-23] MEDS: BUDESONIDE (INHALATION) 0.5 MG/2 ML NEB NEB SCH ×2 (09:49→22:36)
[2022-01-23] MEDS: MUPIROCIN 2% OINT 15gm or 22gm EACHNOSTRI SCH ×2 (11:27→21:40)
[2022-01-23] MEDS: cefTRIAXone 1GM/50ML D5W 50 ML IV SCH (11:27)
[2022-01-23] MEDS: CALCIUM W/VIT D (600MG/400IU) TAB PO SCH ×2 (11:27→18:36)
[2022-01-23] MEDS: ASPirin-EC 81 mg tab PO SCH (11:27)
[2022-01-23] MEDS: ALLOPURINOL 100 MG TAB PO SCH (11:28)
[2022-01-23] MEDS: FUROSEMIDE 20 MG TAB PO SCH (11:28)
[2022-01-23] MEDS: ENOXAPARIN SOD 40 MG/0.4 ML SYRINGE SC SCH (11:28)
[2022-01-23] MEDS: DOXYCYCLINE 100 MG TAB/CAP PO SCH ×2 (11:28→21:39)
[2022-01-23] MEDS: CILOSTAZOL 100 MG TAB PO SCH ×2 (11:28→21:39)
[2022-01-23] MEDS: PANTOPRAZOLE 40 MG TAB PO SCH (11:28)
[2022-01-23 13:59] LABS: Hematocrit 26.4 % (41.0-53.0); Hemoglobin 8.9 g/dL (13.5-17.5)
[2022-01-23] MEDS: ATORVASTATIN 20 MG TAB PO SCH (21:39)
[2022-01-23] MEDS: ALBUTEROL SULF 2.5 MG/0.5ML(0.5%) NEB SOLN NEB PRN (22:36)
[2022-01-24] MEDS: HYDROcodone-ACET 5/325MG TAB PO PRN ×2 (04:05→10:45)
[2022-01-24 05:07] VITALS: BP 140/80
[2022-01-24] MEDS: SODIUM CHLOR 0.9% PF (SALINE LOCK) 10ML VIAL/SYR IV SCH ×3 (05:12→21:44)
[2022-01-24] MEDS: BUDESONIDE (INHALATION) 0.5 MG/2 ML NEB NEB SCH ×2 (05:53→18:43)
[2022-01-24] MEDS: InsuLIN REG 1unit/0.01ml Soln (100units/ml) SC SCH ×5 (06:24→22:00)
[2022-01-24] MEDS: ACCU-CHEK COMFORT CURVE STRIP VI SCH ×4 (06:25→21:46)
[2022-01-24] MEDS: Glucerna Carbsteady SHAKE Vanilla 8oz PO SCH ×3 (08:23→18:00)
[2022-01-24] MEDS: CALCIUM W/VIT D (600MG/400IU) TAB PO SCH ×2 (08:30→18:00)
[2022-01-24 09:20] VITALS: BP 127/53
[2022-01-24] MEDS: cefTRIAXone 1GM/50ML D5W 50 ML IV SCH (09:30)
[2022-01-24] MEDS: ASPirin-EC 81 mg tab PO SCH (10:46)
[2022-01-24] MEDS: MUPIROCIN 2% OINT 15gm or 22gm EACHNOSTRI SCH ×2 (10:46→21:44)
[2022-01-24] MEDS: DOXYCYCLINE 100 MG TAB/CAP PO SCH ×2 (10:47→21:45)
[2022-01-24] MEDS: ALLOPURINOL 100 MG TAB PO SCH (10:47)
[2022-01-24] MEDS: PANTOPRAZOLE 40 MG TAB PO SCH (10:47)
[2022-01-24] MEDS: FUROSEMIDE 20 MG TAB PO SCH (10:47)
[2022-01-24] MEDS: CILOSTAZOL 100 MG TAB PO SCH ×2 (10:47→21:45)
[2022-01-24] MEDS: ENOXAPARIN SOD 40 MG/0.4 ML SYRINGE SC SCH (10:48)
[2022-01-24 13:00] VITALS: BP 99/45
[2022-01-24 16:59] VITALS: BP 139/65
[2022-01-24] MEDS: TAMSULOSIN HYDROCHLORIDE 0.4 MG CAP PO SCH (18:00)
[2022-01-24] MEDS: ALBUTEROL SULF 2.5 MG/0.5ML(0.5%) NEB SOLN NEB PRN (18:43)
[2022-01-24] MEDS: ATORVASTATIN 20 MG TAB PO SCH (21:45)
[2022-01-24 22:00] VITALS: BP 119/56
[2022-01-25 05:00] VITALS: BP 116/60
[2022-01-25] MEDS: ACCU-CHEK COMFORT CURVE STRIP VI SCH ×3 (06:24→22:19)
[2022-01-25] MEDS: SODIUM CHLOR 0.9% PF (SALINE LOCK) 10ML VIAL/SYR IV SCH ×3 (06:24→22:20)
[2022-01-25] MEDS: InsuLIN REG 1unit/0.01ml Soln (100units/ml) SC SCH ×3 (06:33→22:22)
[2022-01-25] MEDS: ALBUTEROL SULF 2.5 MG/0.5ML(0.5%) NEB SOLN NEB PRN ×2 (06:52→18:28)
[2022-01-25] MEDS: BUDESONIDE (INHALATION) 0.5 MG/2 ML NEB NEB SCH ×2 (06:52→18:28)
[2022-01-25] MEDS: Glucerna Carbsteady SHAKE Vanilla 8oz PO SCH ×3 (08:23→17:55)
[2022-01-25] MEDS: CALCIUM W/VIT D (600MG/400IU) TAB PO SCH ×2 (08:24→17:56)
[2022-01-25] MEDS: cefTRIAXone 1GM/50ML D5W 50 ML IV SCH (08:42)
[2022-01-25 09:00] VITALS: BP 109/48
[2022-01-25] MEDS: ASPirin-EC 81 mg tab PO SCH (09:54)
[2022-01-25] MEDS: CILOSTAZOL 100 MG TAB PO SCH ×2 (09:55→22:20)
[2022-01-25] MEDS: PANTOPRAZOLE 40 MG TAB PO SCH (09:55)
[2022-01-25] MEDS: MUPIROCIN 2% OINT 15gm or 22gm EACHNOSTRI SCH ×2 (09:55→22:25)
[2022-01-25] MEDS: DOXYCYCLINE 100 MG TAB/CAP PO SCH ×2 (09:55→22:20)
[2022-01-25] MEDS: FUROSEMIDE 20 MG TAB PO SCH (09:55)
[2022-01-25] MEDS: ENOXAPARIN SOD 40 MG/0.4 ML SYRINGE SC SCH (09:56)
[2022-01-25] MEDS: ALLOPURINOL 100 MG TAB PO SCH (09:56)
[2022-01-25] MEDS: HYDROcodone-ACET 5/325MG TAB PO PRN (12:53)
[2022-01-25 13:00] VITALS: BP 121/54
[2022-01-25 14:32] LABS: Calcium 8.7 mg/dL (8.5-10.1); Potassium 4.3 mmol/L (3.5-5.1)
[2022-01-25 17:00] VITALS: BP 136/64
[2022-01-25] MEDS: TAMSULOSIN HYDROCHLORIDE 0.4 MG CAP PO SCH (17:55)
[2022-01-25] MEDS: MORPHINE SULFATE INJECTION 2 MG/ML SYRG IV PRN (20:59)
[2022-01-25 22:00] VITALS: BP 108/60
[2022-01-25] MEDS: ATORVASTATIN 20 MG TAB PO SCH (22:20)
[2022-01-26 03:41] VITALS: BP 108/60
[2022-01-26 04:47] VITALS: BP 121/60
[2022-01-26] MEDS: SODIUM CHLOR 0.9% PF (SALINE LOCK) 10ML VIAL/SYR IV SCH ×2 (06:00→14:00)
[2022-01-26] MEDS: InsuLIN REG 1unit/0.01ml Soln (100units/ml) SC SCH ×2 (06:34→12:29)
[2022-01-26] MEDS: ALBUTEROL SULF 2.5 MG/0.5ML(0.5%) NEB SOLN NEB PRN (06:36)
[2022-01-26] MEDS: BUDESONIDE (INHALATION) 0.5 MG/2 ML NEB NEB SCH (06:36)
[2022-01-26] MEDS: ACCU-CHEK COMFORT CURVE STRIP VI SCH ×2 (07:00→11:30)
[2022-01-26] MEDS: Glucerna Carbsteady SHAKE Vanilla 8oz PO SCH ×2 (08:00→12:19)
[2022-01-26] MEDS: CALCIUM W/VIT D (600MG/400IU) TAB PO SCH (08:47)
[2022-01-26 09:00] VITALS: BP 115/60
[2022-01-26] MEDS: cefTRIAXone 1GM/50ML D5W 50 ML IV SCH (10:43)
[2022-01-26] MEDS: ENOXAPARIN SOD 40 MG/0.4 ML SYRINGE SC SCH (10:44)
[2022-01-26] MEDS: MUPIROCIN 2% OINT 15gm or 22gm EACHNOSTRI SCH (10:44)
[2022-01-26] MEDS: ALLOPURINOL 100 MG TAB PO SCH (10:44)
[2022-01-26] MEDS: PANTOPRAZOLE 40 MG TAB PO SCH (10:44)
[2022-01-26] MEDS: ASPirin-EC 81 mg tab PO SCH (10:44)
[2022-01-26] MEDS: CILOSTAZOL 100 MG TAB PO SCH (10:44)
[2022-01-26] MEDS: FUROSEMIDE 20 MG TAB PO SCH (10:45)
[2022-01-26 13:05] VITALS: BP 127/61
[2022-01-26 14:14] VITALS: BP 127/61
[2022-01-26 17:00] VITALS: BP 126/75
== END 2022-01-26 18:02 | disposition home health service (06) | DRG 853 ==
LOC: ER 11:18 → EDBD 11:18 → TELE 15:56 → TELE-WESTW 21:09 → WEST WING 01-22 05:41
PROVIDERS: ADMIT Hospitalist; ATTEND Internal Medicine
PROC: BW1C1ZZ Fluoroscopy of Lower Extremity using Low Osmolar Contrast (ICD-10-PCS; 2022-01-20)
PROC: 0QS704Z Reposition Left Upper Femur with Internal Fixation Device, Open Approach (ICD-10-PCS; principal; 2022-01-20 08:40)
DX: A41.9 Sepsis, unspecified organism (principal); S72.142A Displaced intertrochanteric fracture of left femur, initial encounter for closed fracture; N17.0 Acute kidney failure with tubular necrosis; R53.2 Functional quadriplegia; I50.22 Chronic systolic (congestive) heart failure; N39.0 Urinary tract infection, site not specified; I13.0 Hypertensive heart and chronic kidney disease with heart failure and stage 1 through stage 4 chronic kidney disease, or unspecified chronic kidney disease; Z20.822 Contact with and (suspected) exposure to COVID-19; L89.620 Pressure ulcer of left heel, unstageable; L89.610 Pressure ulcer of right heel, unstageable; L89.152 Pressure ulcer of sacral region, stage 2; Z74.01 Bed confinement status; W06.XXXA Fall from bed, initial encounter; E11.65 Type 2 diabetes mellitus with hyperglycemia; E87.5 Hyperkalemia; J44.9 Chronic obstructive pulmonary disease, unspecified; I25.5 Ischemic cardiomyopathy; N18.31 Chronic kidney disease, stage 3a; I25.10 Atherosclerotic heart disease of native coronary artery without angina pectoris; M10.9 Gout, unspecified; E11.22 Type 2 diabetes mellitus with diabetic chronic kidney disease; E11.40 Type 2 diabetes mellitus with diabetic neuropathy, unspecified; E11.51 Type 2 diabetes mellitus with diabetic peripheral angiopathy without gangrene; E11.621 Type 2 diabetes mellitus with foot ulcer; E78.5 Hyperlipidemia, unspecified; F17.200 Nicotine dependence, unspecified, uncomplicated; R33.9 Retention of urine, unspecified; L97.519 Non-pressure chronic ulcer of other part of right foot with unspecified severity; Z79.82 Long term (current) use of aspirin; Z79.84 Long term (current) use of oral hypoglycemic drugs; Z83.3 Family history of diabetes mellitus; Z79.899 Other long term (current) drug therapy; Z79.02 Long term (current) use of antithrombotics/antiplatelets; Z86.73 Personal history of transient ischemic attack (TIA), and cerebral infarction without residual deficits; Z85.828 Personal history of other malignant neoplasm of skin; Z95.1 Presence of aortocoronary bypass graft; Y93.89 Activity, other specified; Y92.89 Other specified places as the place of occurrence of the external cause; Y99.8 Other external cause status
CPT/HCPCS: 36415; 71045; 72192; 73502; 80048; 80053; 80061; 80307; 81001; 82550; 82728; 82962; 83036; 83615; 83690; 83735; 83880; 84100; 84132; 84156; 84443; 84484; 84550; 85014; 85018; 85025; 85379; 85610; 85652; 85730; 86141; 86850; 86900; 86901; 87040; 87081; 87086; 93005; 94640; 96361; 96374; 96375; 97110; 97116; 97163; 97530; C1713; G0378; J0330; J0690; J0696; J1815; J2001; J2250; J2405; J2543; J2704; J3490; J7060

== ENCOUNTER 2022-01-28 12:24 | Inpatient (IN) | payer OTHER ==
[~2022-01-28] VITALS: Ht 177.8 cm; Wt 77.7 kg
[2022-01-28] MEDS ORDERED: SODIUM CHLORIDE 0.9% 500 ML IV ONE (12:45)
[2022-01-28 13:40] LABS: Basophils # (auto) 0.1 10 ^3/uL (0-0.2); Basophils % (auto) 0.7 % (0.0-2.0); Eosinophils # (auto) 0.7 10 ^3/uL (0-0.8); Hemoglobin 9.9 g/dL (13.5-17.5); Mean Corpuscular Hemoglobin 29.3 pg (28.0-32.0); Nucleated Red Blood Cells % 0.1 %; Red Blood Cells 3.38 10^6/uL (4.5-5.90)
[2022-01-28 13:42] LABS: Lymphocytes # (auto) 1.2 10 ^3/uL (0.4-5.4); Mean Corpuscular Volume 88.7 fL (80.0-100.0); Monocytes # (auto) 1.1 10 ^3/uL (0-1.3); Monocytes % (auto) 9.4 % (0.0-12.0); Neutrophils # (auto) 8.9 10 ^3/uL (1.6-8.6); Neutrophils % (auto) 73.9 % (37.0-80.0); Red Cell Distribution Width 16.3 % (11.8-14.3)
[2022-01-28] MEDS ORDERED: ONDANSETRON HCL 4 MG/2 ML VIAL IV ONE (13:45)
[2022-01-28] MEDS ORDERED: MORPHINE SULFATE 4 MG/ML SYR/VIAL IV ONE (13:45)
[2022-01-28 13:46] LABS: Urine Bacteria NONE SEEN /hpf (None Seen); Urine Blood Negative /uL (Negative); Urine Budding Yeast MANY /hpf (None Seen); Urine Specific Gravity 1.016 (1.001-1.035); Urine WBC 13 /hpf (0 - 3)
[2022-01-28 13:55] LABS: INR 1.05 (0.9-1.15); Partial Thromboplastin Time 29.3 sec (23.6-33.0)
[2022-01-28 14:16] LABS: Albumin 2.5 g/dL (3.4-5.0); BUN/Creatinine Ratio 30.4; Calcium 9.1 mg/dL (8.5-10.1); Magnesium 2.3 mg/dL (1.6-2.6)
[2022-01-28 14:18] LABS: Bilirubin, Total 0.6 mg/dL (0.2-1.0); Total Protein 7.7 g/dL (6.4-8.2)
[2022-01-28] MEDS ORDERED: ONDANSETRON HCL 4 MG/2 ML VIAL IV PRN (16:15)
[2022-01-28] MEDS ORDERED: cefTRIAXone 1GM/50ML D5W 50 ML IV ONE (16:45)
[2022-01-28] MEDS ORDERED: ALBUTEROL SULF 2.5 MG/0.5ML(0.5%) NEB SOLN NEB PRN (17:15)
[2022-01-28] MEDS ORDERED: DEXTROSE (50%) 50ML SYRG IV PRN (17:15)
[2022-01-28 17:46] VITALS: BP 107/65
[2022-01-28 21:57] VITALS: BP 107/65
[2022-01-28] MEDS: ACCU-CHEK COMFORT CURVE STRIP VI SCH (21:57)
[2022-01-28] MEDS: PIPERACILLIN-TAZOB 3.375GM 100 ML IV SCH (21:57)
[2022-01-28] MEDS: InsuLIN REG 1unit/0.01ml Soln (100units/ml) SC SCH (21:59)
[2022-01-29 05:23] LABS: Basophils # (auto) 0.1 10 ^3/uL (0-0.2); Basophils % (auto) 0.5 % (0.0-2.0); Eosinophils # (auto) 0.7 10 ^3/uL (0-0.8); Eosinophils % (auto) 6.5 % (0.0-7.0); Hematocrit 28.6 % (41.0-53.0); Hemoglobin 9.3 g/dL (13.5-17.5); Lymphocytes # (auto) 1.1 10 ^3/uL (0.4-5.4); Lymphocytes % (auto) 9.2 % (10.0-50.0); Mean Corpuscular Hemoglobin 28.9 pg (28.0-32.0); Mean Corpuscular Hgb Conc. 32.5 g/dL (32.0-36.0); Mean Corpuscular Volume 88.7 fL (80.0-100.0); Monocytes # (auto) 1.1 10 ^3/uL (0-1.3); Monocytes % (auto) 9.4 % (0.0-12.0); Neutrophils # (auto) 8.5 10 ^3/uL (1.6-8.6); Neutrophils % (auto) 74.4 % (37.0-80.0); Nucleated Red Blood Cells % 0.1 %; Red Blood Cells 3.22 10^6/uL (4.5-5.90); Red Cell Distribution Width 16.2 % (11.8-14.3); White Blood Cell 11.5 10^3/uL (4.4-10.8)
[2022-01-29 05:40] LABS: Albumin 2.2 g/dL (3.4-5.0); BUN/Creatinine Ratio 27.9; Calcium 8.6 mg/dL (8.5-10.1); Potassium 4.6 mmol/L (3.5-5.1)
[2022-01-29 05:43] LABS: Bilirubin, Total 0.5 mg/dL (0.2-1.0); Total Protein 6.5 g/dL (6.4-8.2)
[2022-01-29] MEDS: PIPERACILLIN-TAZOB 3.375GM 100 ML IV SCH ×3 (06:04→21:33)
[2022-01-29] MEDS: InsuLIN REG 1unit/0.01ml Soln (100units/ml) SC SCH ×4 (07:00→21:35)
[2022-01-29] MEDS: ACCU-CHEK COMFORT CURVE STRIP VI SCH ×4 (07:06→21:35)
[2022-01-29] MEDS: MORPHINE SULFATE INJECTION 2 MG/ML SYRG IV PRN (07:08)
[2022-01-29 09:00] VITALS: BP 106/53
[2022-01-29] MEDS: BENAZEPRIL HCL 10 MG TAB PO SCH (10:00)
[2022-01-29] MEDS ORDERED: ENOXAPARIN SOD 40 MG/0.4 ML SYRINGE SC SCH (10:00)
[2022-01-29] MEDS: FUROSEMIDE 20 MG/2 ML VIAL IV SCH (10:00)
[2022-01-29 13:00] VITALS: BP 110/71
[2022-01-29 13:18] LABS: Cholesterol 104 mg/dL (< 200); HDL Cholesterol 40 mg/dL (40-59); LDL Cholesterol 48 mg/dL (< 100); Triglycerides 87 mg/dL (< 150)
[2022-01-29] MEDS: Glucerna Carbsteady SHAKE Chocolate 8oz PO SCH ×2 (14:59→18:21)
[2022-01-29 17:07] VITALS: BP 107/59
[2022-01-29 22:02] VITALS: BP 129/57
[2022-01-30 05:02] VITALS: BP 140/52
[2022-01-30 05:14] LABS: Basophils # (auto) 0.1 10 ^3/uL (0-0.2); Basophils % (auto) 0.9 % (0.0-2.0); Eosinophils % (auto) 7.3 % (0.0-7.0); Hematocrit 29.7 % (41.0-53.0); Hemoglobin 9.9 g/dL (13.5-17.5); Lymphocytes # (auto) 1.5 10 ^3/uL (0.4-5.4); Lymphocytes % (auto) 11.5 % (10.0-50.0); Mean Corpuscular Hemoglobin 29.2 pg (28.0-32.0); Mean Corpuscular Hgb Conc. 33.4 g/dL (32.0-36.0); Mean Corpuscular Volume 87.5 fL (80.0-100.0); Monocytes # (auto) 1.3 10 ^3/uL (0-1.3); Monocytes % (auto) 9.5 % (0.0-12.0); Neutrophils # (auto) 9.3 10 ^3/uL (1.6-8.6); Neutrophils % (auto) 70.8 % (37.0-80.0); Red Blood Cells 3.39 10^6/uL (4.5-5.90); Red Cell Distribution Width 16.3 % (11.8-14.3); White Blood Cell 13.2 10^3/uL (4.4-10.8)
[2022-01-30 05:27] LABS: BUN/Creatinine Ratio 22.4; Calcium 8.8 mg/dL (8.5-10.1); Potassium 4.4 mmol/L (3.5-5.1)
[2022-01-30] MEDS: PIPERACILLIN-TAZOB 3.375GM 100 ML IV SCH (05:36)
[2022-01-30] MEDS: ACCU-CHEK COMFORT CURVE STRIP VI SCH ×4 (06:04→22:08)
[2022-01-30] MEDS: InsuLIN REG 1unit/0.01ml Soln (100units/ml) SC SCH ×4 (06:07→22:09)
[2022-01-30] MEDS: Glucerna Carbsteady SHAKE Chocolate 8oz PO SCH ×3 (08:51→17:47)
[2022-01-30 09:00] VITALS: BP 86/51
[2022-01-30] MEDS: FUROSEMIDE 20 MG/2 ML VIAL IV SCH (09:46)
[2022-01-30] MEDS: BENAZEPRIL HCL 10 MG TAB PO SCH (09:46)
[2022-01-30] MEDS ORDERED: cefTRIAXone 1GM/50ML D5W 50 ML IV ONE (11:30)
[2022-01-30 13:00] VITALS: BP 147/74
[2022-01-30] MEDS: CLINDAMYCIN 300MG IV 50 ML IV SCH ×2 (14:54→21:53)
[2022-01-30] MEDS: MORPHINE SULFATE INJECTION 2 MG/ML SYRG IV PRN (16:36)
[2022-01-30 17:00] VITALS: BP 132/68
[2022-01-30 22:00] VITALS: BP 151/74
[2022-01-31] VITALS (7 sets, daily range): BP systolic 120–145; BP diastolic 56–83
[2022-01-31] MEDS: CLINDAMYCIN 300MG IV 50 ML IV SCH ×3 (05:55→22:19)
[2022-01-31] MEDS: ACCU-CHEK COMFORT CURVE STRIP VI SCH ×4 (06:03→22:22)
[2022-01-31] MEDS: InsuLIN REG 1unit/0.01ml Soln (100units/ml) SC SCH ×4 (06:04→22:00)
[2022-01-31 06:27] LABS: Basophils # (auto) 0.1 10 ^3/uL (0-0.2); Neutrophils # (auto) 10.6 10 ^3/uL (1.6-8.6)
[2022-01-31 06:29] LABS: Basophils % (auto) 0.5 % (0.0-2.0); Eosinophils # (auto) 0.9 10 ^3/uL (0-0.8); Eosinophils % (auto) 6.1 % (0.0-7.0); Hematocrit 30.8 % (41.0-53.0); Hemoglobin 10.2 g/dL (13.5-17.5); Lymphocytes # (auto) 1.7 10 ^3/uL (0.4-5.4); Lymphocytes % (auto) 11.6 % (10.0-50.0); Mean Corpuscular Hgb Conc. 33.2 g/dL (32.0-36.0); Mean Corpuscular Volume 87.5 fL (80.0-100.0); Monocytes # (auto) 1.4 10 ^3/uL (0-1.3); Monocytes % (auto) 9.6 % (0.0-12.0); Neutrophils % (auto) 72.2 % (37.0-80.0); Red Blood Cells 3.52 10^6/uL (4.5-5.90); Red Cell Distribution Width 16.2 % (11.8-14.3); White Blood Cell 14.6 10^3/uL (4.4-10.8)
[2022-01-31] MEDS: Glucerna Carbsteady SHAKE Chocolate 8oz PO SCH ×3 (08:00→17:40)
[2022-01-31] MEDS: cefTRIAXone 1GM/50ML D5W 50 ML IV SCH (11:05)
[2022-01-31] MEDS: BENAZEPRIL HCL 10 MG TAB PO SCH (11:05)
[2022-01-31] MEDS ORDERED: FLUCONAZOLE 100 MG TAB PO ONE (11:45)
[2022-01-31] MEDS: MORPHINE SULFATE INJECTION 2 MG/ML SYRG IV PRN (12:21)
[2022-01-31] MEDS: DOCUSATE SOD 100 MG CAP PO SCH (22:18)
[2022-02-01 05:00] VITALS: BP 133/67
[2022-02-01] MEDS: CLINDAMYCIN 300MG IV 50 ML IV SCH (05:45)
[2022-02-01] MEDS: InsuLIN REG 1unit/0.01ml Soln (100units/ml) SC SCH (05:55)
[2022-02-01] MEDS: ACCU-CHEK COMFORT CURVE STRIP VI SCH (05:55)
[2022-02-01 06:31] LABS: Eosinophils # (auto) 0.7 10 ^3/uL (0-0.8); Hemoglobin 9.9 g/dL (13.5-17.5); Lymphocytes # (auto) 1.7 10 ^3/uL (0.4-5.4); Mean Corpuscular Volume 87.2 fL (80.0-100.0); Neutrophils # (auto) 10.6 10 ^3/uL (1.6-8.6); White Blood Cell 14.2 10^3/uL (4.4-10.8)
[2022-02-01 06:34] LABS: Basophils # (auto) 0.1 10 ^3/uL (0-0.2); Basophils % (auto) 0.9 % (0.0-2.0); Eosinophils % (auto) 4.9 % (0.0-7.0); Hematocrit 29.5 % (41.0-53.0); Lymphocytes % (auto) 12.2 % (10.0-50.0); Mean Corpuscular Hemoglobin 29.4 pg (28.0-32.0); Mean Corpuscular Hgb Conc. 33.7 g/dL (32.0-36.0); Monocytes # (auto) 1.1 10 ^3/uL (0-1.3); Monocytes % (auto) 7.5 % (0.0-12.0); Neutrophils % (auto) 74.5 % (37.0-80.0); Red Blood Cells 3.38 10^6/uL (4.5-5.90); Red Cell Distribution Width 16.2 % (11.8-14.3)
[2022-02-01 06:48] LABS: Calcium 8.9 mg/dL (8.5-10.1); Potassium 4.3 mmol/L (3.5-5.1)
[2022-02-01 06:50] LABS: BUN/Creatinine Ratio 26.2
[2022-02-01] MEDS: Glucerna Carbsteady SHAKE Chocolate 8oz PO SCH (07:41)
[2022-02-01 08:00] VITALS: BP 123/62
[2022-02-01 09:00] VITALS: BP 123/62
[2022-02-01] MEDS: cefTRIAXone 1GM/50ML D5W 50 ML IV SCH (09:50)
[2022-02-01] MEDS: BENAZEPRIL HCL 10 MG TAB PO SCH (09:51)
[2022-02-01] MEDS: DOCUSATE SOD 100 MG CAP PO SCH (09:51)
[2022-02-01] MEDS ORDERED: FLUCONAZOLE 100 MG TAB PO SCH (10:00)
[2022-02-01 12:55] VITALS: BP 137/68
== END 2022-02-01 12:10 | DRG 871 ==
LOC: EDBD 12:24 → ER 12:24 → TELE-CENTR 16:11
PROVIDERS: ADMIT Registered Nurse; ATTEND Internal Medicine
DX: A41.9 Sepsis, unspecified organism (principal); L89.313 Pressure ulcer of right buttock, stage 3; L97.429 Non-pressure chronic ulcer of left heel and midfoot with unspecified severity; N39.0 Urinary tract infection, site not specified; J98.11 Atelectasis; I50.22 Chronic systolic (congestive) heart failure; L97.529 Non-pressure chronic ulcer of other part of left foot with unspecified severity; E11.621 Type 2 diabetes mellitus with foot ulcer; E11.51 Type 2 diabetes mellitus with diabetic peripheral angiopathy without gangrene; I11.0 Hypertensive heart disease with heart failure; I25.10 Atherosclerotic heart disease of native coronary artery without angina pectoris; E78.5 Hyperlipidemia, unspecified; D64.9 Anemia, unspecified; Z20.822 Contact with and (suspected) exposure to COVID-19; M10.9 Gout, unspecified; Z86.73 Personal history of transient ischemic attack (TIA), and cerebral infarction without residual deficits; Z95.1 Presence of aortocoronary bypass graft
CPT/HCPCS: 36415; 71045; 80048; 80053; 80061; 81001; 82962; 83615; 83735; 83880; 84484; 85025; 85610; 85652; 85730; 87040; 87077; 87086; 87088; 87147; 87186; 87205; 93005; 96361; 96374; 96375; 97110; 97116; 97163; 97530; G0378; J0696; J1815; J2405; J2543; J3490

== ENCOUNTER → 2022-05-17 | Outpatient (CLI) | payer OTHER ==
[2022-05-17 12:18] LABS: Urine Blood Negative /uL (Negative); Urine Specific Gravity 1.018 (1.001-1.035)
[2022-05-17 12:28] LABS: Free T4 (Free Thyroxine) 0.87 ng/dL (0.89-1.76)
[2022-05-17 12:29] LABS: Potassium 3.9 mmol/L (3.5-5.1)
[2022-05-17 12:30] LABS: Basophils # (auto) 0.1 10 ^3/uL (0-0.2); Basophils % (auto) 0.8 % (0.0-2.0); Eosinophils % (auto) 8.6 % (0.0-7.0); Hematocrit 36.3 % (41.0-53.0); Hemoglobin 11.5 g/dL (13.5-17.5); Lymphocytes # (auto) 0.9 10 ^3/uL (0.4-5.4); Lymphocytes % (auto) 7.6 % (10.0-50.0); Mean Corpuscular Hemoglobin 28.5 pg (28.0-32.0); Mean Corpuscular Hgb Conc. 31.7 g/dL (32.0-36.0); Mean Corpuscular Volume 89.9 fL (80.0-100.0); Monocytes # (auto) 1.7 10 ^3/uL (0-1.3); Monocytes % (auto) 14.8 % (0.0-12.0); Neutrophils % (auto) 68.2 % (37.0-80.0); Red Blood Cells 4.03 10^6/uL (4.5-5.90); Red Cell Distribution Width 16.2 % (11.8-14.3); White Blood Cell 11.8 10^3/uL (4.4-10.8)
[2022-05-17 12:38] LABS: Prostate Specific Antigen 9.21 ng/mL (0.0-4.0)
[2022-05-17 12:39] LABS: Albumin 2.7 g/dL (3.4-5.0); BUN/Creatinine Ratio 21.4; Bilirubin, Total 0.5 mg/dL (0.2-1.0); Calcium 9.2 mg/dL (8.5-10.1); Total Protein 7.5 g/dL (6.4-8.2)
== END | disposition home or self-care (01) ==
LOC: LAB 10:29
PROVIDERS: ATTEND Internal Medicine Cardiovascular Disease
DX: D51.3 Other dietary vitamin B12 deficiency anemia (principal); D64.9 Anemia, unspecified; E11.9 Type 2 diabetes mellitus without complications; E55.9 Vitamin D deficiency, unspecified; I10 Essential (primary) hypertension; R00.2 Palpitations; R53.1 Weakness; R30.0 Dysuria; C61 Malignant neoplasm of prostate
CPT/HCPCS: 36415; 80053; 80061; 81003; 82306; 82607; 83036; 84153; 84154; 84403; 84439; 84443; 85025; 87086

== ENCOUNTER → 2022-05-30 | Outpatient (CLI) | payer OTHER | END | disposition home or self-care (01) | LOC: Rad HDHVI 14:07 | PROVIDERS: ATTEND Internal Medicine Cardiovascular Disease | DX: I70.203 Unspecified atherosclerosis of native arteries of extremities, bilateral legs (principal); I66.09 Occlusion and stenosis of unspecified middle cerebral artery | CPT/HCPCS: 93925 ==

== ENCOUNTER → 2022-05-31 | Outpatient (CLI) | payer OTHER | END | disposition home or self-care (01) | LOC: Rad HDHVI 13:52 | PROVIDERS: ATTEND Internal Medicine Cardiovascular Disease | DX: I08.0 Rheumatic disorders of both mitral and aortic valves (principal); I10 Essential (primary) hypertension; R06.02 Shortness of breath | CPT/HCPCS: 93306 ==

== ENCOUNTER → 2022-06-29 | Outpatient (CLI) | payer OTHER ==
[~2022-06-29] VITALS: Ht 177.8 cm; Wt 79.4 kg
[~2022-06-29] MED LIST changes: +ADENOSINE 67 MG in GIVE UN-DILUTED 0 ML IV ONE; +ADENOSINE 90 MG/30 ML INJ IV ONE
== END | disposition home or self-care (01) ==
LOC: Rad HDHVI 13:21
PROVIDERS: ATTEND Internal Medicine Cardiovascular Disease
DX: I50.23 Acute on chronic systolic (congestive) heart failure (principal); I25.5 Ischemic cardiomyopathy; I73.9 Peripheral vascular disease, unspecified; I51.7 Cardiomegaly; R60.9 Edema, unspecified; E11.621 Type 2 diabetes mellitus with foot ulcer; E78.5 Hyperlipidemia, unspecified; Z95.1 Presence of aortocoronary bypass graft; Z82.49 Family history of ischemic heart disease and other diseases of the circulatory system
CPT/HCPCS: 78452; 93005; 96374; 96375; A9500; J0153

== ENCOUNTER → 2022-08-03 | Outpatient (CLI) | payer OTHER ==
[~2022-08-03] MED LIST changes: -ADENOSINE 67 MG in GIVE UN-DILUTED 0 ML IV ONE; -ADENOSINE 90 MG/30 ML INJ IV ONE; +DAPA1TAB4 PO; +SIMV-13 PO
[2022-08-03 12:39] VITALS: BP 117/58
[2022-08-03 12:55] VITALS: BP 132/63
[2022-08-03 13:41] LABS: Basophils # (auto) 0.1 10 ^3/uL (0-0.2); Basophils % (auto) 0.7 % (0.0-2.0); Eosinophils # (auto) 1.3 10 ^3/uL (0-0.8); Eosinophils % (auto) 11.1 % (0.0-7.0); Hematocrit 37.9 % (41.0-53.0); Hemoglobin 12.4 g/dL (13.5-17.5); Lymphocytes # (auto) 1.3 10 ^3/uL (0.4-5.4); Lymphocytes % (auto) 10.9 % (10.0-50.0); Mean Corpuscular Hemoglobin 29.6 pg (28.0-32.0); Mean Corpuscular Hgb Conc. 32.6 g/dL (32.0-36.0); Mean Corpuscular Volume 90.6 fL (80.0-100.0); Monocytes % (auto) 8.6 % (0.0-12.0); Neutrophils # (auto) 8.3 10 ^3/uL (1.6-8.6); Neutrophils % (auto) 68.7 % (37.0-80.0); Red Blood Cells 4.19 10^6/uL (4.5-5.90); Red Cell Distribution Width 15.1 % (11.8-14.3); White Blood Cell 12.1 10^3/uL (4.4-10.8)
[2022-08-03 13:57] LABS: INR 1.03 (0.9-1.15); Partial Thromboplastin Time 32.5 sec (24.6-33.4)
[2022-08-03 14:00] LABS: Potassium 4.1 mmol/L (3.5-5.1)
[2022-08-03 14:01] LABS: BUN/Creatinine Ratio 47.2
== END | disposition home or self-care (01) ==
LOC: Rad HDHVI 12:20
PROVIDERS: ATTEND Internal Medicine Cardiovascular Disease
DX: I50.43 Acute on chronic combined systolic (congestive) and diastolic (congestive) heart failure (principal)
CPT/HCPCS: 36415; 71046; 80048; 85025; 85610; 85730; 93005; G0463

== ENCOUNTER 2022-08-04 07:04 | Inpatient (IN) | payer OTHER ==
[2022-08-04] VITALS (7 sets, daily range): BP systolic 101–136; BP diastolic 56–79
[~2022-08-04] VITALS: Ht 177.8 cm; Wt 80.0 kg
[~2022-08-04 07:04] MED LIST changes: -ALBUAER3 IN; -BENA20TA14 PO; -CILO100T PO; -CLOP75TA28 PO; -DOCU-94 PO; -FLUT50SP NAS; -KAY60LQ PO; -METF-371 PO; -PANT40TA2 PO
[2022-08-04] MEDS ORDERED: fentaNYL CITRATE 100 MCG/2 ML VL ONE (11:25)
[2022-08-04] MEDS ORDERED: SODIUM CHL 0.9% 50 ML ONE (11:25)
[2022-08-04] MEDS ORDERED: MIDAZOLAM HCL 2MG/2ML 2ml VIAL (1mg/ml) ONE (11:25)
[2022-08-04] MEDS ORDERED: IOHEXOL 350 MG/ML 100ML IJ ONE ×2 (11:25→12:27)
[2022-08-04] MEDS ORDERED: ANGIOMAX 250 MG VIAL IV ONE (11:25)
[2022-08-04] MEDS ORDERED: LIDOCAINE 2%HCL (LOCAL ANESTH.) INJ 10ml MDV ONE (11:26)
[2022-08-04] MEDS ORDERED: LIDOCAINE 2%HCL (LOCAL ANESTH.) INJ 20ML MDV ONE (11:53)
[2022-08-04] MEDS ORDERED: TRIAMCINOLONE 40MG/ML 1ML VIAL IM ONE (12:00)
[2022-08-04] MEDS ORDERED: NITROGLYCERIN 0.4 MG SL TAB SL PRN (12:45)
[2022-08-04] MEDS ORDERED: DEXTROSE (50%) 50ML SYRG IV PRN (12:45)
[2022-08-04] MEDS ORDERED: MORPHINE SULFATE INJ 2 MG/ml SYRG IV PRN (12:45)
[2022-08-04] MEDS: SODIUM CHLORIDE 0.9% 1,000 ML IV SCH ×3 (13:20→20:15)
[2022-08-04] MEDS: HYDROmorphone HCL 2 MG/ML VL/or syr IV PRN ×2 (13:45→20:10)
[2022-08-04] MEDS: CLOPIDOGREL BISULFATE 75 MG TAB PO SCH (16:17)
[2022-08-04] MEDS: PIPERACILLIN-TAZO 4.5GM 100 ML IV SCH ×2 (16:18→22:06)
[2022-08-04] MEDS: InsuLIN REG 1unit/0.01ml Soln (100units/ml) SC SCH ×2 (17:00→22:00)
[2022-08-04] MEDS: ACCU-CHEK COMFORT CURVE STRIP VI SCH ×2 (17:23→22:04)
[2022-08-04] MEDS: RIVAROXABAN 20 MG TAB PO SCH (18:25)
[2022-08-05] MEDS: HYDROmorphone HCL 2 MG/ML VL/or syr IV PRN (01:35)
[2022-08-05 05:00] VITALS: BP 137/65
[2022-08-05] MEDS: PIPERACILLIN-TAZO 4.5GM 100 ML IV SCH ×3 (06:00→22:08)
[2022-08-05 06:33] LABS: Potassium 4.3 mmol/L (3.5-5.1)
[2022-08-05] MEDS: ACCU-CHEK COMFORT CURVE STRIP VI SCH ×4 (06:33→22:08)
[2022-08-05] MEDS: InsuLIN REG 1unit/0.01ml Soln (100units/ml) SC SCH ×4 (06:36→22:09)
[2022-08-05 06:39] LABS: Albumin 2.9 g/dL (3.4-5.0); BUN/Creatinine Ratio 31.5; Calcium 8.7 mg/dL (8.5-10.1)
[2022-08-05 06:56] LABS: Bilirubin, Total 0.5 mg/dL (0.2-1.0); Total Protein 6.6 g/dL (6.4-8.2)
[2022-08-05] MEDS: EMPAGLIFLOZIN 10 MG TAB PO SCH (06:57)
[2022-08-05 08:59] VITALS: BP 109/56
[2022-08-05] MEDS ORDERED: EMPAGLIFLOZIN 10 MG TAB PO SCH (10:00)
[2022-08-05] MEDS ORDERED: ALLOPURINOL 300 MG TAB PO SCH (10:00)
[2022-08-05] MEDS: CLOPIDOGREL BISULFATE 75 MG TAB PO SCH (10:09)
[2022-08-05 13:00] VITALS: BP 133/68
[2022-08-05 17:00] VITALS: BP 125/74
[2022-08-05] MEDS: RIVAROXABAN 20 MG TAB PO SCH (18:17)
[2022-08-05 22:00] VITALS: BP 130/63
[2022-08-06 05:24] VITALS: BP 127/66
[2022-08-06] MEDS: EMPAGLIFLOZIN 10 MG TAB PO SCH (06:10)
[2022-08-06] MEDS: InsuLIN REG 1unit/0.01ml Soln (100units/ml) SC SCH ×4 (06:10→21:35)
[2022-08-06] MEDS: PIPERACILLIN-TAZO 4.5GM 100 ML IV SCH ×3 (06:10→21:28)
[2022-08-06] MEDS: ACCU-CHEK COMFORT CURVE STRIP VI SCH ×4 (06:11→21:29)
[2022-08-06 09:00] VITALS: BP 130/57
[2022-08-06] MEDS: ALLOPURINOL 100 MG TAB PO SCH (10:07)
[2022-08-06] MEDS: CLOPIDOGREL BISULFATE 75 MG TAB PO SCH (10:07)
[2022-08-06 13:00] VITALS: BP 147/85
[2022-08-06 16:31] VITALS: BP 130/70
[2022-08-06] MEDS: RIVAROXABAN 20 MG TAB PO SCH (17:51)
[2022-08-06 22:00] VITALS: BP 109/51
[2022-08-07 05:00] VITALS: BP 121/62
[2022-08-07] MEDS: PIPERACILLIN-TAZO 4.5GM 100 ML IV SCH ×3 (05:31→22:33)
[2022-08-07] MEDS: ACCU-CHEK COMFORT CURVE STRIP VI SCH ×4 (06:13→22:45)
[2022-08-07] MEDS: InsuLIN REG 1unit/0.01ml Soln (100units/ml) SC SCH ×4 (06:14→22:50)
[2022-08-07] MEDS: EMPAGLIFLOZIN 10 MG TAB PO SCH (06:30)
[2022-08-07 09:00] VITALS: BP 111/58
[2022-08-07] MEDS: CLOPIDOGREL BISULFATE 75 MG TAB PO SCH (09:32)
[2022-08-07] MEDS: ALLOPURINOL 100 MG TAB PO SCH (09:32)
[2022-08-07 13:00] VITALS: BP 124/64
[2022-08-07 16:45] VITALS: BP 123/66
[2022-08-07] MEDS: RIVAROXABAN 20 MG TAB PO SCH (18:22)
[2022-08-07] MEDS: Juven Orange Powder PACKET 27.5gm PO SCH (18:22)
[2022-08-07 22:00] VITALS: BP 127/53
[2022-08-08 05:00] VITALS: BP 136/75
[2022-08-08] MEDS: PIPERACILLIN-TAZO 4.5GM 100 ML IV SCH ×2 (05:02→14:00)
[2022-08-08] MEDS: EMPAGLIFLOZIN 10 MG TAB PO SCH (06:11)
[2022-08-08] MEDS: ACCU-CHEK COMFORT CURVE STRIP VI SCH ×3 (06:11→17:00)
[2022-08-08] MEDS: InsuLIN REG 1unit/0.01ml Soln (100units/ml) SC SCH ×3 (06:12→17:00)
[2022-08-08] MEDS: Juven Orange Powder PACKET 27.5gm PO SCH ×2 (08:00→18:02)
[2022-08-08 09:00] VITALS: BP 140/61
[2022-08-08] MEDS: CLOPIDOGREL BISULFATE 75 MG TAB PO SCH (10:05)
[2022-08-08] MEDS: ALLOPURINOL 100 MG TAB PO SCH (10:05)
[2022-08-08 13:00] VITALS: BP 133/72
[2022-08-08 16:37] VITALS: BP 140/79
[2022-08-08 17:29] VITALS: BP 140/74
[2022-08-08] MEDS: RIVAROXABAN 20 MG TAB PO SCH (18:11)
== END 2022-08-08 19:14 | disposition home or self-care (01) | DRG 271 ==
LOC: CATH 07:04 → OVERFLOW 12:53 → EAST 15:43
PROVIDERS: ADMIT Internal Medicine Cardiovascular Disease; ATTEND Internal Medicine Cardiovascular Disease
PROC: 04CL3ZZ Extirpation of Matter from Left Femoral Artery, Percutaneous Approach (ICD-10-PCS; principal; 2022-08-04)
PROC: 047L3ZZ Dilation of Left Femoral Artery, Percutaneous Approach (ICD-10-PCS; 2022-08-04)
PROC: B41G1ZZ Fluoroscopy of Left Lower Extremity Arteries using Low Osmolar Contrast (ICD-10-PCS; 2022-08-04)
PROC: B41F1ZZ Fluoroscopy of Right Lower Extremity Arteries using Low Osmolar Contrast (ICD-10-PCS; 2022-08-04)
DX: I70.203 Unspecified atherosclerosis of native arteries of extremities, bilateral legs (principal); L03.116 Cellulitis of left lower limb; E78.5 Hyperlipidemia, unspecified; Z20.822 Contact with and (suspected) exposure to COVID-19; I12.9 Hypertensive chronic kidney disease with stage 1 through stage 4 chronic kidney disease, or unspecified chronic kidney disease; I25.10 Atherosclerotic heart disease of native coronary artery without angina pectoris; E11.40 Type 2 diabetes mellitus with diabetic neuropathy, unspecified; M10.9 Gout, unspecified; M24.50 Contracture, unspecified joint; N14.11 Contrast-induced nephropathy; N18.30 Chronic kidney disease, stage 3 unspecified; E11.22 Type 2 diabetes mellitus with diabetic chronic kidney disease; E11.51 Type 2 diabetes mellitus with diabetic peripheral angiopathy without gangrene; Z95.1 Presence of aortocoronary bypass graft; I73.9 Peripheral vascular disease, unspecified
CPT/HCPCS: 36415; 80053; 82962; 99152; 99153; C1769; G0378; J1815; J2001; J2250; J2543